=== PATIENT | female | born 1995 | race Caucasian/White ===

== ENCOUNTER 2017-11-27 14:41 | Emergency (ER) | payer SELFPAY ==
[2017-11-27 14:42] VITALS: BP 151/76; PULSE 77; RESP 16; TEMP 36.6; O2SAT 98; BMI 35.6
[2017-11-27] MEDS: Ketorolac 60 MG/2 ML Vial IM (15:36)
[2017-11-27] MEDS: Ondansetron ODT 4 MG Tablet 8 MG PO (15:37)
[2017-11-27 16:16] LABS: Bacteria 0 SEEN /hpf (None Seen); Mucous, Urine 0 SEEN /hpf (<or=2+)
[2017-11-27 16:23] LABS: Color, Urine Yellow (Yellow); Glucose, Dipstick Normal (Normal); Ketone-Dipstick Negative (Negative); Leukocyte Esterase-Dipstick 100 /ul (Negative); Nitrite-Dipstick Negative (Negative); Occult Blood-Urine 250 /ul (Negative); Protein-Dipstick 30 mg/dl (Negative); Urine Bilirubin Dipstick Negative (Negative); Urine Clarity Sl. Cloudy (Clear); Urine Urobilinogen Normal (Normal)
[2017-11-27 16:32] LABS: Red Blood Cells-Urine > 100 SEEN /hpf (0-5); Squamous Epithelial Cells - UA 0-5 SEEN /hpf (5-10); White Blood Cells 0-5 SEEN /hpf (0-5)
--- NOTE | 2017-11-27 16:39 | ED.DCSUM_ITS ---
- ER Visit Summary Date of Service: 11/27/17 Chief Complaint: [] Abdominal pain History of Present Illness: The patient is a 22 F complaining of low abdominal pain since today at 10 AM gradual onset continuous lower abdominal aching and stabbing. She is on her period. She does have a history of painful periods. Associated nausea. She took a negative test this morning. She took ibuprofen earlier today. She has had some mild dysuria. No other symptoms. She has had a ruptured ovarian cyst remotely Physical Examination: Vital signs reviewed General: Well-nourished well-developed Head: Normocephalic atraumatic Eyes: Pupils equal round and reactive to light extraocular movements intact ENT: TMs clear no hemotympanum no trauma Neck: Nontender full range of motion Cardiovascular: Regular rate rhythm no murmurs normal S1-S2 Respiratory: No distress clear to auscultation bilaterally chest nontender Abdomen: Soft very mild diffuse lower abdominal tenderness nondistended normal bowel sounds no masses Back: Nontender no CVA tenderness Extremities: Nontender active range of motion ?4 extremities no trauma Skin: Normal color no trauma Neuro alert oriented cranial nerves II through XII intact normal strength sensation reflexes Test Results: [] Emergency Department Course and Treatment: [] Urine analysis shows no evidence of infection. Patient given Toradol and Zofran. On reevaluation she feels much better. At this time I do not think she needs to be admitted. I think this is likely secondary to her periods. I do not think she needs further labs or imaging. Treatment Plan: [] Disposition: [] Impression: [], Abdominal pain This note was generated with [employer] dictation software. It may contain incorrect words, spelling, and punctuation that were not noted in review of the chart prior to signing ED Disposition - Plan for ED Patient: Chief Complaint: Abd Pain Referrals: Dacia Lambert MD [Primary Care Provider] -
--- NOTE | 2017-11-27 16:39 | ED.DEP ---
ED Disposition - Plan for ED Patient: Disposition: Home or Assisted Living Chief Complaint: Abd Pain Instructions: ED Abdominal Pain Unkn Cause Referrals: Daica Lambert MD [Primary Care Provider] -
[2017-11-27 17:01] VITALS: BP 142/87; PULSE 79; RESP 16; O2SAT 100
== END 2017-11-27 17:02 | disposition home or self-care (01) ==
PROVIDERS: Emergency Medicine; Emergency Provider Emergency Medicine; Family Provider Family Medicine; PCP Family Medicine
DX: R10.9 Unspecified abdominal pain (principal); R30.0 Dysuria; E66.9 Obesity, unspecified
CPT/HCPCS: 81001; 96372; 99282

== ENCOUNTER 2018-02-03 20:37 | Emergency (ER) | payer OTHER, SELFPAY ==
[2018-02-03 20:38] VITALS: BP 126/70; PULSE 88; RESP 16; TEMP 36.6; O2SAT 100; BMI 36.1
[2018-02-03] MEDS: Acetaminophen 500 MG Tablet 1000 MG PO (22:05)
[2018-02-03] MEDS: Tetracaine 0.5% Ophthalmic Bottle 1 DRP LEFT EYE (22:06)
[2018-02-03] MEDS: Fluorescein 1 MG STRIP 1 STRIP LEFT EYE (22:06)
--- NOTE | 2018-02-03 22:43 | ED.VISSUMM ---
- ER Visit Summary Date of Service: 02/03/18 Chief Complaint: Left eye red History of Present Illness: The patient is a [address] Lambert. She reports that her left eye became red yesterday. She has a foreign body sensation. She has photophobia. She reports that it itches. He has not been matted or crusted. She denies any change in her vision. She denies any trauma. She does not wear contacts. She has not been attending with. Physical Examination: Vitals: Stable. Afebrile. General: Well-nourished and well-developed. Left eye: Conjunctival injection. No exudate. Her eyelid was everted. There is no foreign material under this. There is no corneal abrasion. Extraocular motions are intact without pain. Head: Normocephalic atraumatic. Neck: Supple, no lymphadenopathy. No JVD. Nontender. Cardiovascular: Regular rate and rhythm. No murmurs. Respiratory: No respiratory distress. Clear to auscultation bilaterally. Abdominal: Soft, nontender, nondistended, normal bowel sounds. No guarding, rebound, or peritoneal signs. Back: Nontender. Extremities: Nontender, no edema. Skin: Normal color, no rash. Neurologic: Alert and oriented ?3. Cranial nerves II through XII are intact. Normal strength and sensation. Psych: Normal affect. Emergency Department Course and Treatment: Patient had erythromycin ointment placed. She was treated with Tylenol for pain. Treatment Plan: I discussed with the patient with this itching that it could be allergic in etiology. However, her right eye is not involved. She will be discharged 3 erythromycin drops and Naphcon-A. Instructed to follow-up Dr. Guallpa in 3-5 days if not improving. Return to the emergency department for any worsening symptoms. Disposition: To home in improved and stable condition. Impression: 1. Conjunctivitis on left. This note was generated with [employer] dictation software. It may contain incorrect words, spelling, and punctuation that were not noted in review of the chart prior to signing ED Disposition - Plan for ED Patient: Disposition: Home or Assisted Living Chief Complaint: Eye Problem Instructions: ED Conjunctivitis Nonspecific Prescriptions: Naphazoline HCl/Phenir Mal [Naphcon-A Eye Drops] 1 drop LEFT EYE 4X/DAY PRN #1 bottle PRN Reason: Itching Referrals: Josias Guallpa MD [STAFF PHYSICIAN] - 3-5 Days if not improving
[2018-02-03 22:58] VITALS: BP 124/70; PULSE 74; RESP 16; O2SAT 97
== END 2018-02-03 23:01 | disposition home or self-care (01) ==
PROVIDERS: Emergency Provider Emergency Medicine; Family Provider Family Medicine; PCP Family Medicine
DX: H10.9 Unspecified conjunctivitis (principal); Z72.0 Tobacco use
CPT/HCPCS: 99282

== ENCOUNTER 2018-07-23 12:29 | Emergency (ER) | payer SELFPAY ==
[2018-07-23 12:31] VITALS: BP 136/68; PULSE 67; RESP 16; TEMP 36.7; O2SAT 99; BMI 34.6
--- NOTE | 2018-07-23 13:23 | ED.VISSUMM ---
- ER Visit Summary Date of Service: 07/23/18 Chief Complaint: Rash History of Present Illness: The patient is a 22 F complains of rash to the bilateral axilla for the past 1 month. She had right axillary abscess drained at [facility] about the time the rash started. She does not use deodorant since that time. She had no further abscesses. Physical Examination: Vital signs unremarkable. Patient sitting upright in bed no acute distress. Heart is regular rate and rhythm. Lungs sounds clear. Skin examination reveals flat erythematous areas to the bilateral axilla with some satellite lesions consistent with a fungal skin infection. Test Results: [] Emergency Department Course and Treatment: Patient is given a prescription for ketoconazole cream. She was advised visiting a few weeks to get cleared up. Treatment Plan: [] Disposition: Discharge Impression: Fungal skin infection bilateral axilla This note was generated with [employer] dictation software. It may contain incorrect words, spelling, and punctuation that were not noted in review of the chart prior to signing ED Disposition - Plan for ED Patient: Disposition: Home or Assisted Living Instructions: ED Ringworm Infec Fungal Prescriptions: Ketoconazole [Nizoral Cream] 1 applic TOPICAL BID #1 tube Referrals: Dcaia Lambert MD [STAFF PHYSICIAN] - 1-2 Weeks
== END 2018-07-23 14:02 | disposition home or self-care (01) ==
LOC: ED 13:42
PROVIDERS: Emergency Provider Emergency Medicine
DX: B36.8 Other specified superficial mycoses (principal); Z72.0 Tobacco use
CPT/HCPCS: 99282

== ENCOUNTER 2018-10-07 06:45 | Emergency (ER) | payer SELFPAY ==
[2018-10-07 06:46] VITALS: BP 126/72; PULSE 66; RESP 14; TEMP 36.5; O2SAT 98; BMI 33.1
--- NOTE | 2018-10-07 07:04 | RAD_ITS ---
STUDY: X-RAY - PELVIS REASON FOR EXAM: Female, 22 years old. Follow-up after IUD placement. Patient now has pelvic pain. TECHNIQUE: One view of the pelvis was obtained. COMPARISON: Prior comparable comparison studies are not available for review at this time. FINDINGS: There is a non-specific bowel gas pattern. Normal visualized soft tissue structures. IUD is visible. Sacrum and iliac wings are obscured by bowel gas and stool. Normal visualized bilateral superior and inferior pubic rami. Normal pubic symphysis. Normal ischial tuberosities. Normal visualized right femoral head. Normal right acetabulum. Normal right hip joint. Normal visualized left femoral head. Normal left acetabulum. Normal left hip joint. RAD/Pelvis 1 or 2 Views IMPRESSION: IUD is visible. Electronically Signed: Ángela Meléndez MD at 7:46 EDT , Service support ,
--- NOTE | 2018-10-07 07:06 | ED.DCSUM_ITS ---
- ER Visit Summary Date of Service: 10/07/18 Chief Complaint: Pelvic pain History of Present Illness: The patient is a 22 F who had an IUD placed on September 15 at [facility]. Patient states since that time she has had continued cramping and spotting. Pain today is worse in the right lower quadrant. She has noted some vaginal discharge as well. She has noted some mild dysuria and states that she has chronic UTIs. Physical Examination: Vital signs unremarkable. Head neck examination unremarkable. Heart is regular rate and rhythm. Lung sounds are clear. Abdomen is soft with minimal suprapubic tenderness. No guarding or rebound. No back or CVA tenderness. Pelvic examination reveals mild vaginal bleeding. Cervix is normal. String from IUD is noted. Test Results: Urine test is negative. Urinalysis shows 0-5 white cells with 0 bacteria. Pelvis x-ray reveals IUD to be visible in good position. Emergency Department Course and Treatment: Test results are discussed with the patient. I did discuss appropriate dosing of ibuprofen as she has recently been taking 1200 mg at a time. We will write her for naproxen which she can take twice a day. She was decided not to take ibuprofen with this. She will call [facility] on Tuesday for follow-up. Treatment Plan: [] Disposition: Discharge Impression: Pelvic cramping This note was generated with [employer] dictation software. It may contain incorrect words, spelling, and punctuation that were not noted in review of the chart prior to signing ED Disposition - Plan for ED Patient: Disposition: Home or Assisted Living Instructions: ED Pelvic Pain [facility] Prescriptions: Naproxen [Naprosyn] 500 mg PO BID PRN PRN #20 tablet PRN Reason: Pain Additional Instructions: Follow-up with [facility] on Tuesday.
[2018-10-07 07:30] LABS: Bacteria 0 SEEN /hpf (None Seen); Mucous, Urine 0 SEEN /hpf (<or=2+); Red Blood Cells-Urine 0 SEEN /hpf (0-5)
[2018-10-07 07:36] LABS: Color, Urine Yellow (Yellow); Glucose, Dipstick Normal (Normal); Ketone-Dipstick Negative (Negative); Leukocyte Esterase-Dipstick 25 /ul (Negative); Nitrite-Dipstick Negative (Negative); Occult Blood-Urine 250 /ul (Negative); Protein-Dipstick Negative (Negative); Urine Bilirubin Dipstick Negative (Negative); Urine Clarity Clear (Clear); Urine Urobilinogen Normal (Normal); Urine pH 6.5 (5.0 - 8.0)
[2018-10-07 07:38] LABS: Internal QC Validated? YES +Cl - CLEAR BKGD; Pregnancy, Urine Negative Negative
[2018-10-07 07:43] LABS: Amorphous Sediment 1+; Squamous Epithelial Cells - UA 0-5 SEEN /hpf (5-10); White Blood Cells 0-5 SEEN /hpf (0-5)
[2018-10-07 08:20] VITALS: BP 130/70; PULSE 64; RESP 16; O2SAT 100
== END 2018-10-07 08:21 | disposition home or self-care (01) ==
PROVIDERS: Emergency Provider Emergency Medicine
DX: R25.2 Cramp and spasm (principal); N89.8 Other specified noninflammatory disorders of vagina; N93.9 Abnormal uterine and vaginal bleeding, unspecified; N39.0 Urinary tract infection, site not specified; Z97.5 Presence of (intrauterine) contraceptive device; Z72.0 Tobacco use
CPT/HCPCS: 72170; 81001; 81025; 99282

== ENCOUNTER 2019-11-15 06:38 | Emergency (ER) | payer OTHER, SELFPAY ==
[2019-11-15 06:41] VITALS: BP 115/67; PULSE 65; RESP 16; TEMP 36.5; O2SAT 97; BMI 29.9
--- NOTE | 2019-11-15 07:15 | ED.DCSUM_ITS ---
History of Present Illness Chief Complaint: Female C/O Informant: Patient Pain: Pelvic Pain Onset: Yesterday Context: Gradual Onset Timing: Intermittent Quality: Cramping, Sharp Location: Suprapubic Current Severity: Mild Maximum Severity: Severe Relieved by: NSAIDS Issue: Vaginal bleeding - spotting. Negative for: Passing clots, Passing tissue Onset: Yesterday Associated Symptoms: Negative for: Dysuria, Frequency, Urgency, Hematuria Sexually: Active, Single Partner Control: IUD Narrative: Patient is a 24-year-old female with no significant past medical history presenting with pelvic cramping. Patient states she has a history of painful menstrual cycles with heavy bleeding but currently has an IUD, Heide. She notes last month she had some significant pelvic cramping and that she had pelvic cramping that was severe starting yesterday. States is intermittent. She currently does not have any cramping. She did take 3 Naprosyn yesterday but did not take anything today. States had hard time sleeping last night because of the pain. She is also had some mild spotting. Patient currently does not have an NUISANCE WILDLIFE CONTROL OPERATOR. Her IUD was placed by [facility], per chart review. Patient denies any urinary symptoms. She denies any abnormal vaginal discharge. She states she had 1 sexual partner and is not concerned for sexually transmitted infections. She denies any fever, chills, vomiting or change in bowel habits. She denies any rash. She denies any myalgias or arthralgias. She has any other complaints at this time. Not known her last menstrual period was because she does not normally get menstrual cycles with her IUD. Past Medical History - Allergies and Home Meds Allergies/Adverse Reactions: Allergies nickel Allergy (Verified 11/15/19 06:44) Itching PEPPERMINT OIL Allergy (Uncoded 11/15/19 06:44) Rash Primary Care Physician: Talya Kevin MD [STAFF PHYSICIAN] - Past Medical History: None Surgical History: noncontributory Smoking Status: Current every day smoker Review of Systems General: Denies: Chills, Fever, Sweats Eyes: Denies: Visual changes - bilaterally, Diplopia ENT: Denies: Rhinorrhea, Sore throat Cardiovascular: Denies: Chest pain, Palpitations Respiratory: Denies: Dyspnea, Cough, Dyspnea on exertion Gastrointestinal: Reports: Abdominal pain - Pelvic cramping, Nausea - With pain. Denies: Vomiting, Diarrhea, Melena, Hematochezia Genitourinary: Reports: - - Vaginal spotting. Denies: Dysuria, Hematuria, Frequency Musculoskeletal: Denies: Back pain, Extremity Pain Skin: Denies: Rash, Wounds Neurological: Denies: Headache, Weakness, Numbness Physical Exam Vital Signs/Narrative: Vital Signs Temp Pulse Resp BP Pulse Ox 11/15/19 06:41 97.7 F L 65 16 115/67 97 Inital Vital Signs reviewed: Yes General: Well nourished, Well developed Head: Normocephalic, Atraumatic Eyes: Perrl, EOMI ENT: Moist mucous membranes, No rhinorrhea Neck: Supple, Nontender Cardiovascular: Regular rate, Regular rhythm, No murmurs Respiratory: No distress, CTA bilaterally, Chest nontender Abdomen: Soft, Nontender, Nondistended, Normal bowel sounds : Speculum exam: Normal external genitalia, No vaginal lesions, No vaginal discharge, No blood in vault, No active bleeding, - - Very mildly blood-tinged vaginal discharge but no active bleeding noted. IUD strings are visualized. No cervical motion tenderness. Mild discomfort diffusely with pelvic exam but no significant adnexal tenderness. Negative chandelier sign.. Negative for: Cervicitis, Foul smelling vaginal discharge Bimanual exam: No cervical motion tenderness, Os closed, Normal size uterus, No mass to adnexa, bilat, Tender Uterus - Mildly Back: Nontender, Normal Inspection Extremities: Nontender, No edema Skin: Normal color, No rash Neurological: Alert, Oriented x3, Cranial nerves II-XII grossly intact, Normal Strength, Normal Sensation Psychological: Normal affect Diagnostic/Tx/Re-eval Laboratory Data 11/15/19 11/15/19 06:45 06:45 Urine Color Yellow Urine Clarity Sl. Cloudy Urine pH 6.0 Ur Specific [place] 1.025 Urine Protein 30 H Urine Glucose (UA) Normal Urine Ketones 5 H Urine Occult Blood 50 H Urine Nitrite Negative Urine Bilirubin Negative Urine Urobilinogen Normal Ur Leukocyte Esterase 25 H Urine RBC 0-5 SEEN Urine WBC 0-5 SEEN Ur Squamous Epith Cells 0-5 SEEN Urine Bacteria 1+ Urine Mucus 1+ Urine Test Negative - Medical Decision/Diagnostic Studies She is evaluated for pelvic cramping. This is reminiscent of her menstrual cramps but patient has not had this since she has had her IUD placed. IUD rings are visualized. No signs of UTI however patient does have mild leuk esterase. Urine culture sent. Wet prep does not show trichomonas but does show clue cells concerning for BV. I suspect her pelvic cramping is likely breakthrough menstrual cycle. Patient be treated with NSAID therapy and Flagyl. She is given NUISANCE WILDLIFE CONTROL OPERATOR for follow-up as she does not have one. She is given a work note for today and tomorrow as requested. Her abdomen is soft and nontender. I do not suspect an acute perforation or other acute surgical abnormalities. Her symptoms are not consistent with ovarian torsion I do not think an emergent ultrasound is indicated at this time. She is hemodynamically stable in the emergency room. Patient is counseled on signs and symptoms requiring return to the emergency room. Patient verbalizes agreement and understand this plan. Patient discharged home in stable and improved condition. ED Disposition - Plan for ED Patient: Disposition: Home or Assisted Living Diagnosis: Pelvic cramping, Bacterial vaginosis Instructions: Vaginal Infection: Bacterial Vaginosis, ED Pelvic Pain [facility] Prescriptions: metroNIDAZOLE [Flagyl] 500 mg PO BID #14 tab Transmission Status: Received by [facility] [id number] Ibuprofen [Motrin] 800 mg PO TID PRN PRN #20 tab PRN Reason: Pain/Inflammation Transmission Status: Received by [facility] [id number] Referrals: Talya Kevin MD [STAFF PHYSICIAN] -
[2019-11-15] MEDS: Ibuprofen 600 MG Tablet PO (07:20)
[2019-11-15 07:37] LABS: Color, Urine Yellow (Yellow); Glucose, Dipstick Normal (Normal); Ketone-Dipstick 5 mg/dl (Negative); Leukocyte Esterase-Dipstick 25 /ul (Negative); Nitrite-Dipstick Negative (Negative); Occult Blood-Urine 50 /ul (Negative); Protein-Dipstick 30 mg/dl (Negative); Specific Gravity, Urine 1.025 (1.002-1.030); Urine Bilirubin Dipstick Negative (Negative); Urine Clarity Sl. Cloudy (Clear); Urine Urobilinogen Normal (Normal)
[2019-11-15 07:40] LABS: Internal QC Validated? YES +Cl - CLEAR BKGD; Pregnancy, Urine Negative Negative
[2019-11-15 07:45] LABS: Bacteria 1+ /hpf (None Seen); Mucous, Urine 1+ /hpf (<or=2+); Red Blood Cells-Urine 0-5 SEEN /hpf (0-5); Squamous Epithelial Cells - UA 0-5 SEEN /hpf (5-10); White Blood Cells 0-5 SEEN /hpf (0-5)
[2019-11-15 08:15] VITALS: BP 124/79; PULSE 81; RESP 22; O2SAT 98
--- NOTE | 2019-11-15 08:15 | ED.RN ---
THIS NURSE REVIEWED D/C INSTRUCTIONS WITH PT. PT VERBALIZED UNDERSTANDING OF INSTRUCTIONS. PT DENIES FURTHER NEEDS OR QUESTIONS AT THIS TIME. PT AMBULATES FROM ROOM ON OWN WITHOUT ASSISTANCE FROM STAFF
[2019-11-15 10:54] LABS: Chlamydia Trachomatis by PCR Negative (Negative); Neisserai gonorrhoeae by PCR Negative (Negative); Probe Check PASS; Sample Adequacy Control PASS; Specimen Processing Control PASS
== END 2019-11-15 08:16 | disposition home or self-care (01) ==
PROVIDERS: Emergency Provider Emergency Medicine
DX: N76.0 Acute vaginitis (principal); B96.89 Other specified bacterial agents as the cause of diseases classified elsewhere; R10.2 Pelvic and perineal pain; F17.200 Nicotine dependence, unspecified, uncomplicated; Z97.5 Presence of (intrauterine) contraceptive device
CPT/HCPCS: 81001; 81025; 87086; 87088; 87210; 87491; 87591; 99283

== ENCOUNTER 2019-11-19 07:48 | Emergency (ER) | payer OTHER, SELFPAY ==
[2019-11-19 07:49] VITALS: BP 117/72; PULSE 70; RESP 18; TEMP 36.6; O2SAT 98; BMI 30.9
--- NOTE | 2019-11-19 08:00 | US_ITS ---
STUDY: ULTRASOUND OF THE FEMALE PELVIS - COMPLETE REASON FOR EXAM: Female, 24 years old. RLQ PAIN LMP: Unknown TECHNIQUE: Transvaginal TECHNICAL QUALITY: Adequate. COMPARISON: None. FINDINGS: The uterus is anteverted and is in a midline position. The uterus measures 7 cm x 4 cm x 3.4 cm. Normal uterine cervix. The endometrium measures 6 mm in thickness, and is hyperechoic. There is no demonstrated endometrial mass. There is no demonstrated myometrial mass. I.U.D. - The patient does have an I.U.D. the IUD is fundal. The right ovary is visualized. The right ovary measures 2.8 cm x 2.1 cm x 1.6 cm. There is no right ovarian cyst or ovarian mass. There is no visualized right adnexal mass or complex lesion. There is normal arterial and normal venous vascularity. The left ovary is visualized. The left ovary measures 2.5 cm x 1.9 cm x 1.5 cm. There is no left ovarian cyst or ovarian mass. There is no visualized left adnexal mass or complex lesion. There is normal arterial and normal venous vascularity. There is no fluid in the cul-de-sac. Polycystic ovary disease: No. US/Transvaginal Non- IMPRESSION: Normal female pelvis. IUD is seen within the fundal portion of the uterus. Electronically Signed: Jl Lau, at 9:30 EDT , Service support ,
--- NOTE | 2019-11-19 08:02 | ED.DCSUM_ITS ---
History of Present Illness Chief Complaint: Abd Pain Narrative: Patient presents with pelvic pain she was seen 4 days ago for similar symptoms she tells me that she had intercourse over the weekend and had dyspareunia and had some slight bleeding afterwards she is denying any discharge. She has no fever or chills. She has no dysuria. She has no flank pain. Past Medical History - Allergies and Home Meds Allergies/Adverse Reactions: Allergies nickel Allergy (Verified 11/19/19 07:51) Itching PEPPERMINT OIL Allergy (Uncoded 11/19/19 07:51) Rash Primary Care Physician: Care Physician,No Primary [Primary Care Provider] - Past Medical History: None Surgical History: noncontributory Smoking Status: Current every day smoker Review of Systems All systems negative except as indicated General: Denies: Fever Cardiovascular: Denies: Chest pain Respiratory: Denies: Dyspnea, Cough Gastrointestinal: Reports: Abdominal pain, Nausea. Denies: Vomiting, Diarrhea, Constipation Genitourinary: Denies: Dysuria, Hematuria, Frequency Musculoskeletal: Denies: Myalgias, Back pain Skin: Denies: Rash, Abscess Neurological: Denies: Headache, Weakness Endocrine: Denies: Polyuria Hematologic: Denies: Easy bleeding Physical Exam Vital Signs/Narrative: Vital Signs Temp Pulse Resp BP Pulse Ox 11/19/19 07:49 97.8 F 70 18 117/72 98 General: Well nourished, Well developed, No Acute Distress Cardiovascular: Regular rate Respiratory: No distress, CTA bilaterally Abdomen: Soft, - - There is suprapubic tenderness without any guarding or rebound no tenderness at McBurney's. : - - Normal external genitalia, she has a normal cervix it is not friable, the IUD rings are intact. Back: Nontender, Normal Inspection. Negative for: CVA tenderness Extremities: Nontender Skin: Normal color Psychological: Normal affect Diagnostic/Tx/Re-eval - Medical Decision Making An unremarkable work-up, she is encouraged to follow-up with her [employer] doctor, GC and Chlamydia tests are pending at this time, however her pelvic exam did not show any obvious discharge or a friable cervix. The IUD strings were intact. ED Disposition - Plan for ED Patient: Disposition: Home or Assisted Living Diagnosis: Pelvic pain Instructions: ED Pelvic Pain [facility] Referrals: Talya Kevin MD [STAFF PHYSICIAN] - 3-5 Days
[2019-11-19 08:12] LABS: Mucous, Urine 0 SEEN /hpf (<or=2+)
[2019-11-19] MEDS: Ketorolac 15 MG/ML Vial IV (08:16)
[2019-11-19] MEDS: Ondansetron 4 MG/2 ML Vial IV (08:17)
[2019-11-19 08:19] LABS: Absolute Lymphocyte Count 1.98 X10^3/uL (0.83-4.51); Absolute Neutrophil Count 5.6 X10^3/uL (2.0-7.7); Basophil# 0.09 X10^3/uL; Eosinophil# 0.27 X10^3/uL; Eosinophils% 3.1 % (0-5); Hematocrit 44.5 % (37-47); Hemoglobin 14.2 g/dL (12.0-15.0); Lymphocyte # 1.98 X10^3/ul (4.0); Lymphocyte % 22.8 % (19-41); Mean Corp Hgb Conc 31.9 g/dL (32-36); Mean Corpuscular Hgb 28.7 pg (27.0-32.0); Mean Corpuscular Volume 90.1 fL (81-99); Mean Platelet Vol. 9.7 fl (6.2-12.0); NRBC Flagged by Analyzer 0 % (0-5); Neutrophil # 5.63 X10^3/uL (2.7-7.7); Neutrophil % 64.8 % (47-70); Platelet Count 341 K/mm3 (150-450); RBC Distribution Width CV 13.5 % (11.6-14.6); RBC Distribution Width SD 44.4 fl (35.1-43.9); Red Blood Count 4.94 M/mm3 (4.2-5.4); White Blood Count 8.7 K/mm3 (4.4-11.0)
[2019-11-19 08:24] LABS: Color, Urine Yellow (Yellow); Glucose, Dipstick Normal (Normal); Ketone-Dipstick Negative (Negative); Leukocyte Esterase-Dipstick 25 /ul (Negative); Nitrite-Dipstick Negative (Negative); Occult Blood-Urine 25 /ul (Negative); Protein-Dipstick Negative (Negative); Specific Gravity, Urine 1.015 (1.002-1.030); Urine Bilirubin Dipstick Negative (Negative); Urine Clarity Sl. Cloudy (Clear); Urine Urobilinogen Normal (Normal)
[2019-11-19 08:30] LABS: Bacteria 1+ /hpf (None Seen); Red Blood Cells-Urine 0-5 SEEN /hpf (0-5); Squamous Epithelial Cells - UA 0-5 SEEN /hpf (5-10); White Blood Cells 0-5 SEEN /hpf (0-5)
[2019-11-19 10:06] VITALS: BP 111/66; PULSE 56; RESP 18
[2019-11-19 13:00] LABS: Chlamydia Trachomatis by PCR Negative (Negative); Neisserai gonorrhoeae by PCR Negative (Negative); Probe Check PASS; Sample Adequacy Control PASS; Specimen Processing Control PASS
== END 2019-11-19 10:07 | disposition home or self-care (01) ==
PROVIDERS: Emergency Provider Emergency Medicine
DX: R10.2 Pelvic and perineal pain (principal); R11.0 Nausea; F17.200 Nicotine dependence, unspecified, uncomplicated
CPT/HCPCS: 76830; 81001; 85025; 87210; 87491; 87591; 93976; 96374; 96375; 99283; A4216; J2405

== ENCOUNTER 2020-02-11 08:04 | Emergency (ER) | payer OTHER, SELFPAY ==
[2020-02-11 08:05] VITALS: BP 133/63; PULSE 66; RESP 16; TEMP 36.3; O2SAT 98; BMI 28.2
[2020-02-11 08:07] VITALS: BP 133/63; PULSE 66; RESP 16; TEMP 36.3; O2SAT 98
--- NOTE | 2020-02-11 08:16 | DCINST.ED_ITS ---
ED Disposition - Plan for ED Patient: Instructions: ED Cellulitis Prescriptions: Smz/Tmp Ds [Bactrim Ds] 1 tab PO BID #14 tab Prescription Printed Cephalexin [Keflex] 500 mg PO Q6 #40 cap Prescription Printed Referrals: Tresa Valentine, MANUFACTURING PROJECT ENGINEER-C [Primary Care Provider] -
--- NOTE | 2020-02-11 08:20 | ED.VISSUMM ---
- ER Visit Summary Date of Service: 02/11/20 Chief Complaint: Sore on right breast History of Present Illness: The patient is a 24 F presenting with sore on right breast. Patient states she noticed this yesterday. She denies pain or injury. Denies fever. She noticed a scab to the inferior aspect of her right breast yesterday. This morning she noted that the scab had fallen off. She denies drainage. She is not breast-feeding. Denies other complaints. Physical Examination: Vitals are stable. Patient is afebrile. Alert no acute distress. HEENT exam is unremarkable. Neck is supple. Lungs are clear and equal bilaterally. Right breast 2cm area of circular erythema, no fluctuance or induration Heart is regular rate and rhythm. Extremities are unremarkable. Skin is warm and dry. Remainder of exam is unremarkable. Emergency Department Course and Treatment: She was given Bactrim and Keflex. There is no area amenable to drainage at this time. She was advised to watch this closely and follow-up with her primary care physician. Advised to return to ED for worsening complaints. Disposition: Discharge home Impression: Right breast cellulitis This note was generated with [employer] dictation software. It may contain incorrect words, spelling, and punctuation that were not noted in review of the chart prior to signing ED Disposition - Plan for ED Patient: Instructions: ED Cellulitis Prescriptions: Smz/Tmp Ds [Bactrim Ds] 1 tab PO BID #14 tab Prescription Printed Cephalexin [Keflex] 500 mg PO Q6 #40 cap Prescription Printed Referrals: Tresa Valentine NP-C [Primary Care Provider] -
[2020-02-11] MEDS: Smz/Tmp Ds Tablet 1 TABLET PO (08:25)
[2020-02-11] MEDS: Cephalexin 250 MG Capsule 500 MG PO (08:25)
== END 2020-02-11 08:29 | disposition home or self-care (01) ==
LOC: ED 08:26
PROVIDERS: Emergency Provider Emergency Medicine; PCP Nurse Practitioner Family
DX: N61.0 Mastitis without abscess (principal)
CPT/HCPCS: 99283

== ENCOUNTER → 2022-06-21 | Outpatient (CLI) | payer MEDICAID, SELFPAY ==
[2022-06-21 13:27] LABS: Absolute Lymphocyte Count 1.53 X10^3/uL (0.83-4.51); Absolute Neutrophil Count 7.5 X10^3/uL (2.0-7.7); Basophil# 0.05 X10^3/uL; Basophil% 0.5 % (0-1); Eosinophil# 0.12 X10^3/uL; Eosinophils% 1.2 % (0-5); Hematocrit 37.4 % (37-47); Hemoglobin 12.4 g/dL (12.0-15.0); Lymphocyte # 1.53 X10^3/ul (0.83-4.51); Lymphocyte % 15.4 % (19-41); Mean Corp Hgb Conc 33.2 g/dL (32-36); Mean Corpuscular Volume 84.4 fL (81-99); Mean Platelet Vol. 9.7 fl (6.2-12.0); Monocyte# 0.64 X10^3/uL; Monocyte% 6.5 % (0-10); NRBC Flagged by Analyzer 0 % (0-5); Neutrophil % 75.6 % (47-70); Platelet Count 347 K/mm3 (150-450); RBC Distribution Width CV 13.2 % (11.6-14.6); RBC Distribution Width SD 41.2 fl (35.1-43.9); Red Blood Count 4.43 M/mm3 (4.2-5.4); White Blood Count 9.9 K/mm3 (4.4-11.0)
[2022-06-21 15:53] LABS: HIV - WCH Non-Reactive (Nonreactive); Hepatitis B Surface Antigen Non-Reactive (Nonreactive); Hepatitis C Antibody Non-Reactive (Nonreactive); Rubella IgG Reactive (Nonreactive); Syphilis Antibodies Non-reactive
[2022-06-24 21:46] LABS: V-Zoster IgG (Immunity) 384 index (Immune >165)
[2022-06-24 22:48] LABS: HPV Reflexed? NOT INDICATED
== END | disposition home or self-care (01) ==
LOC: WOBLAB 11:55
PROVIDERS: PCP Nurse Practitioner Family; Visit Provider Student in an Organized Health Care Education/Training Program
DX: Z34.81 Encounter for supervision of other normal pregnancy, first trimester (principal)
CPT/HCPCS: 36415; 85025; 86703; 86762; 86780; 86787; 86803; 87086; 87088; 87340; 88175; G0145

== ENCOUNTER → 2022-09-10 | Outpatient (CLI) | payer MEDICAID, SELFPAY ==
[2022-09-10 10:33] LABS: Absolute Lymphocyte Count 1.98 X10^3/uL (0.83-4.51); Absolute Neutrophil Count 6.9 X10^3/uL (2.0-7.7); Basophil# 0.05 X10^3/uL; Basophil% 0.5 % (0-1); Eosinophil# 0.09 X10^3/uL; Eosinophils% 0.9 % (0-5); Hematocrit 33.4 % (37-47); Hemoglobin 11.2 g/dL (12.0-15.0); Lymphocyte # 1.98 X10^3/ul (0.83-4.51); Lymphocyte % 20.3 % (19-41); Mean Corp Hgb Conc 33.5 g/dL (32-36); Mean Corpuscular Hgb 28.9 pg (27.0-32.0); Mean Corpuscular Volume 86.3 fL (81-99); Mean Platelet Vol. 9.1 fl (6.2-12.0); Monocyte# 0.66 X10^3/uL; Monocyte% 6.8 % (0-10); NRBC Flagged by Analyzer 0 % (0-5); Neutrophil % 70.8 % (47-70); Platelet Count 363 K/mm3 (150-450); RBC Distribution Width CV 13.2 % (11.6-14.6); Red Blood Count 3.87 M/mm3 (4.2-5.4); White Blood Count 9.8 K/mm3 (4.4-11.0)
[2022-09-10 11:09] LABS: Glucose Challenge Gest 1H 50g 84 mg/dL (70-140)
[2022-09-10 11:32] LABS: Syphilis Antibodies Non-reactive
== END | disposition home or self-care (01) ==
LOC: WOBLAB 10:14
PROVIDERS: PCP Nurse Practitioner Family; Visit Provider Student in an Organized Health Care Education/Training Program
DX: Z34.82 Encounter for supervision of other normal pregnancy, second trimester (principal)
CPT/HCPCS: 36415; 82950; 85025; 86780

== ENCOUNTER 2022-09-15 15:15 | Outpatient (CLI) | payer MEDICAID, SELFPAY ==
[2022-09-15 15:28] VITALS: BMI 34.4
[2022-09-15 15:30] VITALS: TEMP 36.8; O2SAT 100
[2022-09-15 16:04] LABS: Color, Urine Yellow (Yellow); Glucose, Dipstick Normal (Normal); Ketone-Dipstick Negative (Negative); Leukocyte Esterase-Dipstick 25 /ul (Negative); Nitrite-Dipstick Negative (Negative); Occult Blood-Urine 250 /ul (Negative); Protein-Dipstick 15 mg/dl (Negative); Specific Gravity, Urine 1.015 (1.002-1.030); Urine Bilirubin Dipstick Negative (Negative); Urine Clarity Sl. Cloudy (Clear); Urine Urobilinogen Normal (Normal)
--- NOTE | 2022-09-15 18:14 | OB.TRI.NOTE ---
HPI - General General Date of Service: 09/15/22 HPI Narrative REGAN PFEIFFER, is a 26 F who presents with vaginal cramping and back pain PFSH PFSH Home Medications cephalexin 500 mg capsule 500 mg PO Q6 #40 caps 02/11/20 [Rx Last Taken Unknown] sulfamethoxazole 800 mg-trimethoprim 160 mg tablet 1 tab PO BID #14 tabs 02/11/20 [Rx Last Taken Unknown] 09/15/22 [History Last Taken Unknown] acetaminophen 325 mg tablet (Tylenol) 650 mg PO Q6H PRN Pain 09/15/22 [History Last Taken Unknown] ondansetron HCl 4 mg tablet 4 mg PO Q8H PRN Nausea 09/15/22 [History Last Taken Unknown] Allergy/AdvReac Type Severity Reaction Status Date / Time nickel Allergy Itching Verified 02/11/20 08:05 peppermint Allergy Rash Verified 05/14/22 16:17 Social History Smoking Status: Current every day smoker NST FHR Rate Baby A Baseline: 140 Variability:: Moderate Accelerations:: 10 x 10 Decelerations:: None NST Reactive:: Yes Uterine Activity:: quiet Assessment & Plan (1) : PLAN: Patient arrived with cramping. Called by nursing with cramping back pain. Overall reassuring heart tones. Afebrile vital signs stable. Vaginal bleeding, cervical exam closed thick and high per nursing. Reassuring heart tones. Urine overall negative, blood likely from vaginal bleeding. Okay to discharge home and continue to monitor, follow-up at scheduled appointments
--- NOTE | 2022-09-16 05:20 | CT_ITS ---
EXAM: CT ABDOMEN AND PELVIS WITH INTRAVENOUS CONTRAST CLINICAL INDICATION: Acute right flank pain, 26 weeks Acute right flank pain, 26 weeks TECHNIQUE: Helically acquired images were obtained of the abdomen and pelvis with intravenous contrast. This CT exam was performed using one or more of the following dose reduction techniques: automated exposure control, adjustment of the mA and/or kV according to patient size, and/or use of iterative reconstruction technique. This report was created using [employer] report generation technology. CONTRAST: IV 100mL [id number]-370 RADIATION DOSE: CTDIvol = 15.31 mGy, DLP = 1338.07 mGy-cm COMPARISON: None. FINDINGS: LOWER THORAX: Unremarkable. Lung bases are clear. No cardiomegaly. No significant pericardial effusion. ABDOMEN: LIVER: Unremarkable. Homogeneous. No focal mass. GALLBLADDER AND BILE DUCTS: The gallbladder surgically absent. No intra- or extrahepatic biliary ductal dilation. PANCREAS: Unremarkable. No focal cystic or solid mass. SPLEEN: Unremarkable. Normal size without focal cystic or solid mass. ADRENALS: Unremarkable. No nodules. KIDNEYS AND URETERS: As seen on axial images 111-113, there is a 1.5 cm long, 4 mm wide distal right ureteral calculus versuscollection of distal right ureteral calculi at the ureterovesical junction. There is right hydroureter and moderate hydronephrosis of the right kidney. Normal renal size and position. STOMACH AND BOWEL: Unremarkable. No stomach or bowel distention. No focal inflammatory change. PELVIS: APPENDIX: The appendix is seen on axial images 58-71. There is no evidence for acute appendicitis. BLADDER: Unremarkable. REPRODUCTIVE: There is a single intrauterine gestation in breech presentation. ABDOMEN and PELVIS: INTRAPERITONEAL SPACE: Unremarkable. No ascites or other fluid collection. No free air. BONES/JOINTS: There are multilevel degenerative changes in the visualized spine. No suspicious lytic or blastic abnormality. SOFT TISSUES: Unremarkable. No discrete abdominal or pelvic wall hernia. VASCULATURE: Unremarkable. Abdominal aorta is non-dilated. LYMPH NODES: Unremarkable. No enlarged lymph nodes. CT/Abdomen/Pelvis W IV Cont ONLY IMPRESSION: 1. 4 mm wide, 1.5 cm long calcific density in the distal right ureter at the UVJ. This may represent a single elongated calculus or a dense collection of smaller calculi. There is associated moderate right hydronephrosis. 2. Previous cholecystectomy. 3. Single intrauterine gestation. Electronically Signed: Daryl Castelan MD at 5:54 EDT ,
[2022-09-16 05:50] VITALS: BP 130/72; PULSE 88; TEMP 36.3
[2022-09-16 05:51] VITALS: PULSE 91; O2SAT 97
== END 2022-09-15 17:04 | disposition home or self-care (01) ==
LOC: WPOUT 15:27 → WP 15:28
PROVIDERS: PCP Nurse Practitioner Family; Referring Provider Obstetrics & Gynecology; Visit Provider Obstetrics & Gynecology
DX: O99.891 Other specified diseases and conditions complicating pregnancy (principal); M54.9 Dorsalgia, unspecified; O99.330 Smoking (tobacco) complicating pregnancy, unspecified trimester; F17.200 Nicotine dependence, unspecified, uncomplicated; Z3A.00 Weeks of gestation of pregnancy not specified
CPT/HCPCS: 59050; 81002; 99221; G0378

== ENCOUNTER 2022-09-16 02:30 | Outpatient (CLI) | payer MEDICAID, SELFPAY ==
[2022-09-16] MEDS: 0.9% Normal Saline 1,000 ML 999 ML IV ×2 (03:40→06:17)
[2022-09-16] MEDS: Ceftriaxone 1 GM/50 ML BAG IV (04:42)
[2022-09-16 06:00] VITALS: BMI 35.3
[2022-09-16] MEDS: Acetaminophen 500 MG Tablet 1000 MG PO ×2 (06:10→12:03)
[2022-09-16] MEDS: Ondansetron 4 MG/2 ML Vial IV (06:13)
--- NOTE | 2022-09-16 06:24 | HP.PCM.OB_ITS ---
History and Physical Date of Admission: 09/16/22 Chief complaint: Right lower quadrant pain History present illness: 26-year-old G1, P0 at 26 weeks and 3 days with INGRID 12/19/2022 arrives with right lower quadrant pain. Pain was generalized yesterday morning and became worsened and more right-sided. Patient recently with nausea. Denies headache, vision change, chest pain, shortness of breath, right upper quadrant pain, fevers, chills. Patient states good movement is complicated by medical marijuana use for nausea, BMI 35 Obstetric history: G1: Current Past medical history: None Medications: vitamin, medical marijuana Past surgical history: Cholecystectomy Family history: Denies history DVT or PE Social history: Current medical marijuana user. Former cigarette smoker. Denies alcohol use Review of systems: Besides above pertinent positives a full review of systems was performed and found to be negative Physical exam: Vitals: Pending General: Discomfort HEENT: Normocephalic/atraumatic no cervical lymphadenopathy Cardiac/respiratory: No use of accessory muscles, nonlabored breathing Abdomen: Soft, tender to deep palpation of right lower quadrant, negative rebound tenderness or guarding, gravid Back: Negative CVA tenderness bilaterally Extremities: No peripheral edema normal peripheral pulses Psych: Normal affect and remainder nonpressured speech Labs: Pending Bedside ultrasound: Cephalic, TEJAL subjectively within normal limits. Placenta appears normal no signs of abruption CT abdomen and pelvis: Reviewed images revealing right nephrolithiasis Assessment and plan: 26-year-old G1, P0 at 26 weeks and 3 days arrived yesterday to triage with cramping found to have cervix closed. For clarification after further discussion with patient, patient never had vaginal bleeding at triage visit or at this visit which was documented and reported to me by nursing but after discussion with patient patient denies vaginal bleeding. After being discharged home from triage patient with more than just cramping and noted to have right- sided pain, instructed to come to the hospital for further evaluation. Patient arrived to hospital called by nursing with pain and discomfort more right-sided, instructed nursing to give IV fluid bolus and IV Rocephin with suspicion of pyelonephritis. Called back by nursing with no improvement given order for Zofran and labs, also CT abdomen and pelvis with IV contrast ordered. Arrived to hospital for self evaluation. Overall patient appears mild discomfort in bed. Abdomen tender in light right lower quadrant with negative rebound tenderness or guarding. Bedside ultrasound with cephalic presentation TEJAL subjectively within normal limits and no signs of abruption. After further discussion with patient, discussed suspicion for nephrolithiasis versus appendicitis. Educated patient on possibility both diagnoses and also evaluation plan. Patient state understanding, partner stated understanding. CT abdomen pelvis performed and noted right nephrolithiasis noted. Educated patient on findings, discussed treatment options. Discussed pain control including use of narcotics risk benefits alternatives. Discussed risks for use of narcotics. Patient states understanding and feels that she is under excruciating pain and needs something more. Discussed options. Patient elects for Dilaudid as needed, Dilaudid as needed ordered. Flomax ordered. IV fluid bolus again ordered and IV fluids normal saline at 150 cc after bolus completes. Will consider urology consult, discussed with patient the option for urology consult. All questions answered by patient and partner. All questions answered by nursing
[2022-09-16] MEDS: Tamsulosin HCl 0.4 MG Capsule PO (06:34)
[2022-09-16] MEDS: 0.9% Normal Saline 1,000 ML 150 ML IV (07:19)
[2022-09-16 07:29] VITALS: O2SAT 98
[2022-09-16 07:30] VITALS: BP 117/64; PULSE 75
[2022-09-16 08:24] LABS: BUN 7 mg/dL (7-18); Glucose 90 mg/dL (74-106)
[2022-09-16 08:25] LABS: Anion Gap 8 (5-15); BUN/Creat Ratio 7.4 RATIO (10-20); Calcium,Total 8.8 mg/dL (8.5-10.1); Chloride 108 mmol/L (98-107); Creatinine, Serum 0.94 mg/dL (0.55-1.02); EST Glomerular Filtration Rate 76 mL/min (>60); Est Glom Filt Rate - Afr Amer 92 mL/min (>60); Estimated Creatinine Clearance 80.89 ml/min; Potassium 3.8 mmol/L (3.5-5.1); Sodium Level 139 mmol/L (136-145)
--- NOTE | 2022-09-16 08:52 | NURSING ---
This nurse spoke to we discussed her plan of care. We will continue with IV fluids and cont to strain her urine, and treat her pain. He is aware she has only used Tylenol at this time. We discussed the size of the stone, he did inform me that the urologist here in town are on vacation and unavailable. The pt would need to be transferred if she needed further tx such as a stent. On rounds at this time pt is sleeping.
[2022-09-16 09:49] LABS: Hematocrit 33.8 % (37-47); Hemoglobin 11.3 g/dL (12.0-15.0); Mean Corp Hgb Conc 33.4 g/dL (32-36); Mean Corpuscular Hgb 28.9 pg (27.0-32.0); Mean Corpuscular Volume 86.4 fL (81-99); Mean Platelet Vol. 9.1 fl (6.2-12.0); Platelet Count 336 K/mm3 (150-450); RBC Distribution Width CV 13.2 % (11.6-14.6); RBC Distribution Width SD 41.2 fl (35.1-43.9); Red Blood Count 3.91 M/mm3 (4.2-5.4); White Blood Count 17.2 K/mm3 (4.4-11.0)
[2022-09-16 10:54] VITALS: TEMP 36.7
[2022-09-16 10:55] VITALS: BP 122/74; PULSE 82
== END 2022-09-16 12:13 | disposition home or self-care (01) ==
LOC: WPOUT 05:53 → WP 05:54
PROVIDERS: PCP Nurse Practitioner Family; Visit Provider Obstetrics & Gynecology
DX: O99.891 Other specified diseases and conditions complicating pregnancy (principal); N20.0 Calculus of kidney; Z3A.26 26 weeks gestation of pregnancy; Z79.899 Other long term (current) drug therapy; Z87.891 Personal history of nicotine dependence
CPT/HCPCS: 96365; 96375; 96361; 36415; 59025; 59050; 74177; 80048; 85027; J7030; Q9967; A4216; J2405

== ENCOUNTER 2022-12-22 07:05 | Inpatient (IN) | payer MEDICAID, SELFPAY ==
[2022-12-22] VITALS (42 sets, daily range): BP systolic 94–125; BP diastolic 46–84; PULSE 65–91; RESP 16; TEMP 35.8–36.6; O2SAT 97–100; BMI 37.3
--- NOTE | 2022-12-22 07:27 | HP.PCM.OB_ITS ---
History and Physical Date of Admission: 12/22/22 HPI: 27-year-old G1, P0 at 40/3 weeks, INGRID 12/19/2022 by LMP, admitted for elective induction of labor. Denies regular contractions, leaking of fluid, vaginal bleeding. Reports movement. Denies headache or vision changes, chest pain or shortness of breath, nausea or vomiting, diarrhea constipation, fevers or chills. complicated by: History of nephrolithiasis status post laser [facility] September 2022, class II obesity CASE FINISHER history: G1: Current Medical history: 1. History of nephrolithiasis 2022 2. Class II obesity Surgical history: 1. Laser of renal stone 2022 2. Cholecystectomy in 2019 Family history: Denies history of blood clots or bleeding disorders Allergies: 1. Nickel 2. Peppermint Medications: 1. Social history: Denies tobacco, alcohol, drug use. Reports former tobacco use. Review of system: Negative otherwise stated above Physical exam: Blood pressure 125/79, heart rate 81, temp 97.0 ?F, pulse ox 98% on room air General: No acute distress HEENT: Normal cephalic/atraumatic, PERRLA Cardiorespiratory: No increased effort Abdomen: Soft, nontender, gravid Extremities: No edema Neurologic: Cranial nerves II through XII grossly intact, no focal deficits Musculoskeletal: Moves all extremities equally heart rate: 145/mod delia/+accel/no decel [place]: quiet Assessment/plan: 27-year-old G1, P0 at 40/3 weeks, INGRID 12/19/2022 by LMP, admitted for elective induction of labor. complicated by: History of nephrolithiasis status post laser [facility] in September 2022, class II obesity. ?Admit for induction of labor at term ? Beta strep negative ? Induction of labor with Cytotec ? Epidural at any time per patient request
[2022-12-22] MEDS: Lactated Ringers 1,000 ML 50 ML IV (08:20)
[2022-12-22] MEDS: miSOPROStol 25 MCG TABLET VAGINAL ×2 (08:25→12:12)
[2022-12-22 08:44] LABS: Absolute Lymphocyte Count 2.16 X10^3/uL (0.83-4.51); Absolute Neutrophil Count 8.7 X10^3/uL (2.0-7.7); Basophil# 0.06 X10^3/uL; Basophil% 0.5 % (0-1); Eosinophils% 1.7 % (0-5); Hematocrit 32.4 % (37-47); Hemoglobin 10.7 g/dL (12.0-15.0); Lymphocyte # 2.16 X10^3/ul (0.83-4.51); Lymphocyte % 17.8 % (19-41); Mean Corpuscular Hgb 26.4 pg (27.0-32.0); Mean Corpuscular Volume 79.8 fL (81-99); Mean Platelet Vol. 9.7 fl (6.2-12.0); Monocyte% 7.4 % (0-10); NRBC Flagged by Analyzer 0 % (0-5); Neutrophil # 8.68 X10^3/uL (2.7-7.7); Neutrophil % 71.7 % (47-70); Platelet Count 416 K/mm3 (150-450); RBC Distribution Width CV 14.6 % (11.6-14.6); RBC Distribution Width SD 42.1 fl (35.1-43.9); Red Blood Count 4.06 M/mm3 (4.2-5.4); White Blood Count 12.1 K/mm3 (4.4-11.0)
[2022-12-22 09:14] LABS: Amphetamine Urine VISTA NEGATIVE (<1000 ng/mL); Barbiturate Urine VISTA NEGATIVE (< 200 ng/mL); Benzodiazepine Urine VISTA NEGATIVE (< 200 ng/mL); Cocaine Urine VISTA NEGATIVE (< 300 ng/mL); Ecstacy Urine VISTA NEGATIVE (< 500 ng/mL); Methadone Urine VISTA NEGATIVE (< 300 ng/mL); PCP Urine VISTA NEGATIVE (< 25 ng/mL); THC Urine VISTA POSITIVE (< 50 ng/mL); Vista UDS pH Range 7
[2022-12-22] MEDS: Mag Hydrox/Al Hydrox/Simeth 30 ML UDC PO (09:25)
[2022-12-22 09:31] LABS: Syphilis Antibodies Non-reactive
[2022-12-22] MEDS: LACTATED RINGERS 500 ML 999 ML IV ×3 (15:40→20:45)
[2022-12-22] MEDS: fentaNYL-bupivacaine (epidural) 100 ML BAG EPIDURAL ×2 (16:20→21:39)
[2022-12-22] MEDS: Ondansetron 4 MG/2 ML Vial IV (17:47)
[2022-12-22] MEDS: Lactated Ringers 1,000 ML 200 ML IV ×2 (18:38→22:23)
[2022-12-22] MEDS: Oxytocin 15 Units/NS 250ml 15 UNITS/250 ML IV.SOLN 2 UNITS IV (19:01)
[2022-12-22] MEDS: Acetaminophen 500 MG Tablet PO (23:23)
[2022-12-22] MEDS: Sodium Citrate/Citric Acid 30 ML UDC PO (23:23)
--- NOTE | 2022-12-22 23:41 | PCM.PN.OB ---
Subjective Subjective Patient resting comfortably in bed. Pain well controlled with epidural Objective Data Objective Data Vital Signs: Vital Signs Temp Pulse Resp BP Pulse Ox O2 Del Method 97.3 F L 78 16 119/67 100 Room Air 12/22/22 23:15 12/22/22 23:15 12/22/22 23:08 12/22/22 23:15 12/22/22 23:08 12/22/22 23:08 Oxygen Delivery Method Room Air Weight: 224 lb 2 oz Body Mass Index (BMI) 37.3 Intake & Output: Intake and Output for Last 24 Hours 12/20/22 12/21/22 12/22/22 23:59 23:59 23:59 Intake Total 2716.02 / 2716.02 Output Total 1450 / 1450 Balance 1266.02 / 1266.02 Lab / Micro Data 12/22/22 08:15 Labs: Laboratory Results - last 24 hr 12/22/22 08:15: WBC 12.1 H, RBC 4.06 L, Hgb 10.7 L, Hct 32.4 L, MCV 79.8 L, MCH 26.4 L, MCHC 33.0, RDW Std Deviation 42.1, RDW Coeff of [place] 14.6, Plt Count 416, MPV 9.7, Immature Gran % (Auto) 0.900, Neut % (Auto) 71.7 H, Lymph % (Auto) 17.8 L, [place] % (Auto) 7.4, Eos % (Auto) 1.7, Baso % (Auto) 0.5, Absolute Neuts (auto) 8.7 H, Absolute Lymphs (auto) 2.16, Nucleated RBC % 0, Urine Opiates Screen NEGATIVE, Urine Methadone Screen NEGATIVE, Ur Barbiturates Screen NEGATIVE, Ur Phencyclidine Scrn NEGATIVE, Ur Amphetamines Screen NEGATIVE, MDMA (Ecstasy) Screen NEGATIVE, U Benzodiazepines Scrn NEGATIVE, Urine Cocaine Screen NEGATIVE, U Cannabinoids Screen POSITIVE H, Ur Drug Screen Comment , Syphilis Total Ab Non-reactive, Blood Type O POSITIVE, Antibody Screen NEGATIVE Physical Exam Const alert, oriented x3, average body habitus, healthy appearing and well nourished HEENT normocephalic and moist oral mucous membranes Eyes PERRL Neck full ROM Resp normal respiratory effort, no retractions and no use of accessory muscles GI GI Narrative: Soft, nontender, gravid Psych mental status grossly normal, affect normal, speech normal and activity/motor behavior normal Assessment & Plan (1) : PLAN: Initially called by nursing with recurrent decelerations reviewed heart rate tracing with nursing and discussed position changes and to adjust Pitocin per protocol and okay to turn off Pitocin to resolve heart tracings. Reviewed algorithm for category 2 tracing and just prior to meeting criteria for section heart rate tracing resolved. Hours later called by nursing again with recurrent decelerations reviewed heart rate tracing and noted to have moderate variability with recurrent decelerations greater than 50% of the contractions for greater than 1 hour therefore instructed for primary section based on Richard Cha's management of category 2 tracing algorithm. Educated nursing on findings, given orders to call Surgical team and prepare for primary section for nonreassuring heart tones. Given orders nursing for 2 g Ancef and 500 mg of azithromycin. Patient seen and examined, educated patient and partner on heart rate tracing and need for section risk benefits alternatives discussed include but are not limited to visceral or vascular injury, prolonged hospitalization, blood loss need for transfusion, reoperation. Patient state understanding and wished to proceed with procedure and okay with transfusion if needed. All questions answered and consent signed. Discussed case with anesthesia. For primary section now
[2022-12-23] VITALS (18 sets, daily range): BP systolic 101–133; BP diastolic 56–80; PULSE 65–93; RESP 12–18; TEMP 36.2–36.7; O2SAT 98–100
[2022-12-23] MEDS: Cefazolin 2 GM in 0.9% Normal Saline 100 ML IV (00:07)
--- NOTE | 2022-12-23 00:46 | EX.PCM.OBRPT ---
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 Normal uterus, tubes, and ovaries. Consent: Patient arrived for induction of labor at term subsequent with nonreassuring heart tones and elected for primary section Via Pfannenstiel incision. Patient understands risk of the procedure include but are not limited to visceral or vascular injury, prolonged hospitalization, blood loss need for transfusion, reoperation. Patient state understanding wish to proceed. All questions were answered and consent was signed. Procedure: Patient was brought back to the OR where epidural anesthesia was found to be adequate. 2 g of Ancef and 500 mg of azithromycin were given for infection prophylaxis. Patient was prepared and draped in a supine position with leftward tilt. A Pfannenstiel incision was made at the skin with a scalpel. The incision was carried down to the fascia with scalpel. The fascia was excised and extended laterally. Rectus muscle was dissected at the midline down to the level of the pubic symphysis. Preperitoneal fat tissue was noted peritoneum was entered bluntly. Peritoneum was extended superiorly and inferiorly with good visualization of bladder. Bladder blade was inserted and vesicouterine peritoneum was identified. Low transverse hysterotomy was made. Hand was placed into the incision and gentle fundal pressure was applied once the head was brought into the incision and the bladder blade was removed. Head and shoulders were delivered with ease. Cord was clamped and cut. Baby handed off to nursing. Placenta was delivered via cord traction and fundal massage. IV oxytocin was initiated in order to facilitate uterine contractions. Uterus was exteriorized and wiped out with dry laparotomy sponge in order to remove remaining placental membranes. Uterus was closed in continuous running fashion. Good hemostasis was noted. Uterus was placed back in the abdominal cavity and the incision was reinspected, good hemostasis was noted. Fascia was closed in continuous running fashion with PDS suture. Subcutaneous irrigation was performed and the good hemostasis was noted. Skin was closed in a subcuticular fashion. Good hemostasis was noted. All counts were correct x2. Patient tolerated procedure well and was brought to recovery in stable condition.
[2022-12-23] MEDS: Oxytocin 15 Units/NS 250ml 15 UNITS/250 ML IV.SOLN 83 UNITS IV (01:05)
[2022-12-23] MEDS: Lactated Ringers 1,000 ML 100 ML IV (01:05)
[2022-12-23] MEDS: 0.9% Saline Lock 10 ML Syringe IV (02:26)
[2022-12-23] MEDS: Ketorolac 30 MG/ML Syringe IV ×4 (02:26→21:39)
[2022-12-23] MEDS: Acetaminophen 500 MG Tablet 1000 MG PO ×3 (05:09→17:58)
--- NOTE | 2022-12-23 07:10 | PCM.NUR.HP ---
Subjective Subjective: Note cancelled. Objective Objective Data: 12/22/22 07:33 12/22/22 07:33 12/22/22 07:33 Temperature Temperature Source Pulse Rate 81 91 Respiratory Rate Respiratory Pattern Blood Pressure 125/79 H Blood Pressure [BP] Blood Pressure Mean Blood Pressure Mean [BP] BP Systolic 125 BP Diastolic 79 Blood Pressure Source Blood Pressure Source [BP] Blood Pressure Position Blood Pressure Position [BP] Blood Pressure Location Blood Pressure Location [BP] Pulse Ox Oxygen Delivery Method 12/22/22 07:33 12/22/22 07:36 12/22/22 07:36 Temperature 97.0 F L Temperature Source Temporal Pulse Rate Respiratory Rate Respiratory Pattern Blood Pressure Blood Pressure [BP] Blood Pressure Mean Blood Pressure Mean [BP] BP Systolic BP Diastolic Blood Pressure Source Blood Pressure Source [BP] Blood Pressure Position Blood Pressure Position [BP] Blood Pressure Location Blood Pressure Location [BP] Pulse Ox 98 Oxygen Delivery Method 12/22/22 09:03 12/22/22 09:03 12/22/22 09:03 Temperature Temperature Source Temporal Pulse Rate 66 Respiratory Rate Respiratory Pattern Blood Pressure 111/68 Blood Pressure [BP] Blood Pressure Mean Blood Pressure Mean [BP] BP Systolic 111 BP Diastolic 68 Blood Pressure Source Blood Pressure Source [BP] Blood Pressure Position Blood Pressure Position [BP] Blood Pressure Location Blood Pressure Location [BP] Pulse Ox Oxygen Delivery Method 12/22/22 09:03 12/22/22 09:03 12/22/22 11:13 Temperature 96.4 F L Temperature Source Pulse Rate 74 Respiratory Rate Respiratory Pattern Blood Pressure Blood Pressure [BP] Blood Pressure Mean Blood Pressure Mean [BP] BP Systolic BP Diastolic Blood Pressure Source Blood Pressure Source [BP] Blood Pressure Position Blood Pressure Position [BP] Blood Pressure Location Blood Pressure Location [BP] Pulse Ox 98 Oxygen Delivery Method 12/22/22 11:13 12/22/22 11:14 12/22/22 11:14 Temperature Temperature Source Pulse Rate 72 Respiratory Rate Respiratory Pattern Blood Pressure 113/67 Blood Pressure [BP] Blood Pressure Mean Blood Pressure Mean [BP] BP Systolic 113 BP Diastolic 67 Blood Pressure Source Blood Pressure Source [BP] Blood Pressure Position Blood Pressure Position [BP] Blood Pressure Location Blood Pressure Location [BP] Pulse Ox 98 Oxygen Delivery Method 12/22/22 11:14 12/22/22 11:14 12/22/22 11:14 Temperature 97.2 F L Temperature Source Temporal Pulse Rate Respiratory Rate Respiratory Pattern Blood Pressure Blood Pressure [BP] Blood Pressure Mean Blood Pressure Mean [BP] BP Systolic BP Diastolic Blood Pressure Source Blood Pressure Source [BP] Blood Pressure Position Blood Pressure Position [BP] Blood Pressure Location Blood Pressure Location [BP] Pulse Ox 98 Oxygen Delivery Method 12/22/22 12:17 12/22/22 12:17 12/22/22 12:17 Temperature Temperature Source Temporal Pulse Rate 65 Respiratory Rate Respiratory Pattern Blood Pressure 116/71 Blood Pressure [BP] Blood Pressure Mean Blood Pressure Mean [BP] BP Systolic 116 BP Diastolic 71 Blood Pressure Source Blood Pressure Source [BP] Blood Pressure Position Blood Pressure Position [BP] Blood Pressure Location Blood Pressure Location [BP] Pulse Ox Oxygen Delivery Method 12/22/22 12:17 12/22/22 12:17 12/22/22 14:14 Temperature 96.7 F L Temperature Source Pulse Rate Respiratory Rate Respiratory Pattern Blood Pressure 116/61 Blood Pressure [BP] Blood Pressure Mean Blood Pressure Mean [BP] BP Systolic 116 BP Diastolic 61 Blood Pressure Source Blood Pressure Source [BP] Blood Pressure Position Blood Pressure Position [BP] Blood Pressure Location Blood Pressure Location [BP] Pulse Ox 97 Oxygen Delivery Method 12/22/22 14:14 12/22/22 14:14 12/22/22 14:14 Temperature Temperature Source Temporal Pulse Rate 73 Respiratory Rate Respiratory Pattern Blood Pressure Blood Pressure [BP] Blood Pressure Mean Blood Pressure Mean [BP] BP Systolic BP Diastolic Blood Pressure Source Blood Pressure Source [BP] Blood Pressure Position Blood Pressure Position [BP] Blood Pressure Location Blood Pressure Location [BP] Pulse Ox 99 Oxygen Delivery Method 12/22/22 14:14 12/22/22 14:14 12/22/22 16:10 Temperature 97.4 F L Temperature Source Pulse Rate 72 Respiratory Rate Respiratory Pattern Blood Pressure Blood Pressure [BP] Blood Pressure Mean Blood Pressure Mean [BP] BP Systolic BP Diastolic Blood Pressure Source Blood Pressure Source [BP] Blood Pressure Position Blood Pressure Position [BP] Blood Pressure Location Blood Pressure Location [BP] Pulse Ox 99 Oxygen Delivery Method 12/22/22 16:10 12/22/22 16:17 12/22/22 16:17 Temperature Temperature Source Pulse Rate 68 Respiratory Rate Respiratory Pattern Blood Pressure 119/84 H Blood Pressure [BP] Blood Pressure Mean Blood Pressure Mean [BP] BP Systolic 119 BP Diastolic 84 Blood Pressure Source Blood Pressure Source [BP] Blood Pressure Position Blood Pressure Position [BP] Blood Pressure Location Blood Pressure Location [BP] Pulse Ox 100 Oxygen Delivery Method 12/22/22 16:16 12/22/22 16:21 12/22/22 16:21 Temperature Temperature Source Pulse Rate 70 Respiratory Rate Respiratory Pattern Blood Pressure Blood Pressure [BP] Blood Pressure Mean Blood Pressure Mean [BP] BP Systolic BP Diastolic Blood Pressure Source Blood Pressure Source [BP] Blood Pressure Position Blood Pressure Position [BP] Blood Pressure Location Blood Pressure Location [BP] Pulse Ox 99 100 Oxygen Delivery Method 12/22/22 16:24 12/22/22 16:24 12/22/22 16:24 Temperature Temperature Source Temporal Pulse Rate 74 Respiratory Rate Respiratory Pattern Blood Pressure 121/65 H Blood Pressure [BP] Blood Pressure Mean Blood Pressure Mean [BP] BP Systolic 121 BP Diastolic 65 Blood Pressure Source Blood Pressure Source [BP] Blood Pressure Position Blood Pressure Position [BP] Blood Pressure Location Blood Pressure Location [BP] Pulse Ox Oxygen Delivery Method 12/22/22 16:24 12/22/22 16:24 12/22/22 16:26 Temperature 97.3 F L Temperature Source Pulse Rate 67 Respiratory Rate Respiratory Pattern Blood Pressure Blood Pressure [BP] Blood Pressure Mean Blood Pressure Mean [BP] BP Systolic BP Diastolic Blood Pressure Source Blood Pressure Source [BP] Blood Pressure Position Blood Pressure Position [BP] Blood Pressure Location Blood Pressure Location [BP] Pulse Ox 100 Oxygen Delivery Method 12/22/22 16:26 12/22/22 16:27 12/22/22 16:27 Temperature Temperature Source Pulse Rate 70 Respiratory Rate Respiratory Pattern Blood Pressure 118/75 Blood Pressure [BP] Blood Pressure Mean Blood Pressure Mean [BP] BP Systolic 118 BP Diastolic 75 Blood Pressure Source Blood Pressure Source [BP] Blood Pressure Position Blood Pressure Position [BP] Blood Pressure Location Blood Pressure Location [BP] Pulse Ox 100 Oxygen Delivery Method 12/22/22 16:31 12/22/22 16:31 12/22/22 16:32 Temperature Temperature Source Pulse Rate 67 Respiratory Rate Respiratory Pattern Blood Pressure 113/72 Blood Pressure [BP] Blood Pressure Mean Blood Pressure Mean [BP] BP Systolic 113 BP Diastolic 72 Blood Pressure Source Blood Pressure Source [BP] Blood Pressure Position Blood Pressure Position [BP] Blood Pressure Location Blood Pressure Location [BP] Pulse Ox 100 Oxygen Delivery Method 12/22/22 16:32 12/22/22 16:36 12/22/22 16:36 Temperature Temperature Source Pulse Rate 67 73 Respiratory Rate Respiratory Pattern Blood Pressure Blood Pressure [BP] Blood Pressure Mean Blood Pressure Mean [BP] BP Systolic BP Diastolic Blood Pressure Source Blood Pressure Source [BP] Blood Pressure Position Blood Pressure Position [BP] Blood Pressure Location Blood Pressure Location [BP] Pulse Ox 99 Oxygen Delivery Method 12/22/22 16:42 12/22/22 16:42 12/22/22 16:41 Temperature Temperature Source Pulse Rate 80 Respiratory Rate Respiratory Pattern Blood Pressure 117/62 Blood Pressure [BP] Blood Pressure Mean Blood Pressure Mean [BP] BP Systolic 117 BP Diastolic 62 Blood Pressure Source Blood Pressure Source [BP] Blood Pressure Position Blood Pressure Position [BP] Blood Pressure Location Blood Pressure Location [BP] Pulse Ox 97 Oxygen Delivery Method 12/22/22 16:47 12/22/22 16:47 12/22/22 16:52 Temperature Temperature Source Pulse Rate 82 Respiratory Rate Respiratory Pattern Blood Pressure 113/56 L 114/60 Blood Pressure [BP] Blood Pressure Mean Blood Pressure Mean [BP] BP Systolic 113 114 BP Diastolic 56 60 Blood Pressure Source Blood Pressure Source [BP] Blood Pressure Position Blood Pressure Position [BP] Blood Pressure Location Blood Pressure Location [BP] Pulse Ox Oxygen Delivery Method 12/22/22 16:52 12/22/22 16:57 12/22/22 16:57 Temperature Temperature Source Pulse Rate 81 71 Respiratory Rate Respiratory Pattern Blood Pressure 103/60 Blood Pressure [BP] Blood Pressure Mean Blood Pressure Mean [BP] BP Systolic 103 BP Diastolic 60 Blood Pressure Source Blood Pressure Source [BP] Blood Pressure Position Blood Pressure Position [BP] Blood Pressure Location Blood Pressure Location [BP] Pulse Ox Oxygen Delivery Method 12/22/22 17:02 12/22/22 17:02 12/22/22 17:08 Temperature Temperature Source Pulse Rate 66 Respiratory Rate Respiratory Pattern Blood Pressure 111/59 L 114/58 L Blood Pressure [BP] Blood Pressure Mean Blood Pressure Mean [BP] BP Systolic 111 114 BP Diastolic 59 58 Blood Pressure Source Blood Pressure Source [BP] Blood Pressure Position Blood Pressure Position [BP] Blood Pressure Location Blood Pressure Location [BP] Pulse Ox Oxygen Delivery Method 12/22/22 17:08 12/22/22 17:12 12/22/22 17:12 Temperature Temperature Source Pulse Rate 68 74 Respiratory Rate Respiratory Pattern Blood Pressure 109/58 L Blood Pressure [BP] Blood Pressure Mean Blood Pressure Mean [BP] BP Systolic 109 BP Diastolic 58 Blood Pressure Source Blood Pressure Source [BP] Blood Pressure Position Blood Pressure Position [BP] Blood Pressure Location Blood Pressure Location [BP] Pulse Ox Oxygen Delivery Method 12/22/22 17:27 12/22/22 17:27 12/22/22 17:49 Temperature Temperature Source Temporal Pulse Rate 68 Respiratory Rate Respiratory Pattern Blood Pressure 109/63 Blood Pressure [BP] Blood Pressure Mean Blood Pressure Mean [BP] BP Systolic 109 BP Diastolic 63 Blood Pressure Source Blood Pressure Source [BP] Blood Pressure Position Blood Pressure Position [BP] Blood Pressure Location Blood Pressure Location [BP] Pulse Ox Oxygen Delivery Method 12/22/22 17:49 12/22/22 17:50 12/22/22 17:50 Temperature 97.4 F L Temperature Source Pulse Rate 72 Respiratory Rate Respiratory Pattern Blood Pressure 105/55 L Blood Pressure [BP] Blood Pressure Mean Blood Pressure Mean [BP] BP Systolic 105 BP Diastolic 55 Blood Pressure Source Blood Pressure Source [BP] Blood Pressure Position Blood Pressure Position [BP] Blood Pressure Location Blood Pressure Location [BP] Pulse Ox Oxygen Delivery Method 12/22/22 18:05 12/22/22 18:05 12/22/22 18:19 Temperature Temperature Source Pulse Rate 68 Respiratory Rate Respiratory Pattern Blood Pressure 94/46 L 94/52 L Blood Pressure [BP] Blood Pressure Mean Blood Pressure Mean [BP] BP Systolic 94 94 BP Diastolic 46 52 Blood Pressure Source Blood Pressure Source [BP] Blood Pressure Position Blood Pressure Position [BP] Blood Pressure Location Blood Pressure Location [BP] Pulse Ox Oxygen Delivery Method 12/22/22 18:19 12/22/22 18:32 12/22/22 18:32 Temperature Temperature Source Pulse Rate 65 73 Respiratory Rate Respiratory Pattern Blood Pressure 110/62 Blood Pressure [BP] Blood Pressure Mean Blood Pressure Mean [BP] BP Systolic 110 BP Diastolic 62 Blood Pressure Source Blood Pressure Source [BP] Blood Pressure Position Blood Pressure Position [BP] Blood Pressure Location Blood Pressure Location [BP] Pulse Ox Oxygen Delivery Method 12/22/22 18:45 12/22/22 18:45 12/22/22 18:55 Temperature Temperature Source Pulse Rate 72 Respiratory Rate Respiratory Pattern Blood Pressure 109/67 108/63 Blood Pressure [BP] Blood Pressure Mean Blood Pressure Mean [BP] BP Systolic 109 108 BP Diastolic 67 63 Blood Pressure Source Blood Pressure Source [BP] Blood Pressure Position Blood Pressure Position [BP] Blood Pressure Location Blood Pressure Location [BP] Pulse Ox Oxygen Delivery Method 12/22/22 18:55 12/22/22 19:25 12/22/22 19:25 Temperature Temperature Source Pulse Rate 72 71 Respiratory Rate Respiratory Pattern Blood Pressure 119/72 Blood Pressure [BP] Blood Pressure Mean Blood Pressure Mean [BP] BP Systolic 119 BP Diastolic 72 Blood Pressure Source Blood Pressure Source [BP] Blood Pressure Position Blood Pressure Position [BP] Blood Pressure Location Blood Pressure Location [BP] Pulse Ox Oxygen Delivery Method 12/22/22 19:25 12/22/22 19:25 12/22/22 20:08 Temperature 97.4 F L Temperature Source Temporal Temporal Pulse Rate Respiratory Rate Respiratory Pattern Blood Pressure Blood Pressure [BP] Blood Pressure Mean Blood Pressure Mean [BP] BP Systolic BP Diastolic Blood Pressure Source Blood Pressure Source [BP] Blood Pressure Position Blood Pressure Position [BP] Blood Pressure Location Blood Pressure Location [BP] Pulse Ox Oxygen Delivery Method 12/22/22 20:08 12/22/22 20:08 12/22/22 20:08 Temperature 97.9 F Temperature Source Pulse Rate 73 Respiratory Rate Respiratory Pattern Blood Pressure 116/65 Blood Pressure [BP] Blood Pressure Mean Blood Pressure Mean [BP] BP Systolic 116 BP Diastolic 65 Blood Pressure Source Blood Pressure Source [BP] Blood Pressure Position Blood Pressure Position [BP] Blood Pressure Location Blood Pressure Location [BP] Pulse Ox Oxygen Delivery Method 12/22/22 21:07 12/22/22 21:08 12/22/22 21:08 Temperature Temperature Source Temporal Pulse Rate 75 Respiratory Rate Respiratory Pattern Blood Pressure 119/77 Blood Pressure [BP] Blood Pressure Mean Blood Pressure Mean [BP] BP Systolic 119 BP Diastolic 77 Blood Pressure Source Blood Pressure Source [BP] Blood Pressure Position Blood Pressure Position [BP] Blood Pressure Location Blood Pressure Location [BP] Pulse Ox Oxygen Delivery Method 12/22/22 21:07 12/22/22 21:08 12/22/22 21:08 Temperature 97.9 F 97.9 F Temperature Source Pulse Rate Respiratory Rate Respiratory Pattern Blood Pressure Blood Pressure [BP] Blood Pressure Mean Blood Pressure Mean [BP] BP Systolic BP Diastolic Blood Pressure Source Blood Pressure Source [BP] Blood Pressure Position Blood Pressure Position [BP] Blood Pressure Location Blood Pressure Location [BP] Pulse Ox 100 Oxygen Delivery Method 12/22/22 22:18 12/22/22 22:19 12/22/22 22:19 Temperature Temperature Source Temporal Pulse Rate 80 Respiratory Rate Respiratory Pattern Blood Pressure 117/57 L Blood Pressure [BP] Blood Pressure Mean Blood Pressure Mean [BP] BP Systolic 117 BP Diastolic 57 Blood Pressure Source Blood Pressure Source [BP] Blood Pressure Position Blood Pressure Position [BP] Blood Pressure Location Blood Pressure Location [BP] Pulse Ox Oxygen Delivery Method 12/22/22 22:18 12/22/22 22:18 12/22/22 23:00 Temperature 97.5 F L Temperature Source Pulse Rate 75 Respiratory Rate Respiratory Pattern Blood Pressure Blood Pressure [BP] Blood Pressure Mean Blood Pressure Mean [BP] BP Systolic BP Diastolic Blood Pressure Source Blood Pressure Source [BP] Blood Pressure Position Blood Pressure Position [BP] Blood Pressure Location Blood Pressure Location [BP] Pulse Ox 99 Oxygen Delivery Method 12/22/22 23:00 12/22/22 23:15 12/22/22 23:15 Temperature Temperature Source Temporal Pulse Rate Respiratory Rate Respiratory Pattern Blood Pressure 119/67 Blood Pressure [BP] Blood Pressure Mean Blood Pressure Mean [BP] BP Systolic 119 BP Diastolic 67 Blood Pressure Source Blood Pressure Source [BP] Blood Pressure Position Blood Pressure Position [BP] Blood Pressure Location Blood Pressure Location [BP] Pulse Ox 99 Oxygen Delivery Method 12/22/22 23:15 12/22/22 23:15 12/23/22 01:27 Temperature 97.3 F L Temperature Source Temporal Pulse Rate 78 Respiratory Rate Respiratory Pattern Blood Pressure Blood Pressure [BP] Blood Pressure Mean Blood Pressure Mean [BP] BP Systolic BP Diastolic Blood Pressure Source Blood Pressure Source [BP] Blood Pressure Position Blood Pressure Position [BP] Blood Pressure Location Blood Pressure Location [BP] Pulse Ox Oxygen Delivery Method 12/23/22 01:00 12/23/22 02:00 12/23/22 02:30 Temperature Temperature Source Temporal Temporal Temporal Pulse Rate Respiratory Rate Respiratory Pattern Blood Pressure Blood Pressure [BP] Blood Pressure Mean Blood Pressure Mean [BP] BP Systolic BP Diastolic Blood Pressure Source Blood Pressure Source [BP] Blood Pressure Position Blood Pressure Position [BP] Blood Pressure Location Blood Pressure Location [BP] Pulse Ox Oxygen Delivery Method 12/23/22 03:00 12/23/22 04:00 12/23/22 05:05 Temperature Temperature Source Temporal Temporal Temporal Pulse Rate Respiratory Rate Respiratory Pattern Blood Pressure Blood Pressure [BP] Blood Pressure Mean Blood Pressure Mean [BP] BP Systolic BP Diastolic Blood Pressure Source Blood Pressure Source [BP] Blood Pressure Position Blood Pressure Position [BP] Blood Pressure Location Blood Pressure Location [BP] Pulse Ox Oxygen Delivery Method 12/23/22 06:41 12/22/22 23:08 12/23/22 01:27 Temperature 97.5 F L 98.1 F Temperature Source Temporal Temporal Temporal Pulse Rate 73 76 Respiratory Rate 16 16 Respiratory Pattern Normal Blood Pressure 119/67 107/56 L Blood Pressure [BP] Blood Pressure Mean 84 73 Blood Pressure Mean [BP] BP Systolic BP Diastolic Blood Pressure Source Monitor Monitor Blood Pressure Source [BP] Blood Pressure Position Semi-Fowlers Semi-Fowlers Blood Pressure Position [BP] Blood Pressure Location Right Arm Right Arm Blood Pressure Location [BP] Pulse Ox 100 99 Oxygen Delivery Method Room Air Room Air 12/23/22 01:00 12/23/22 01:15 12/23/22 01:30 Temperature 98.1 F Temperature Source Temporal Pulse Rate 81 72 77 Respiratory Rate 18 18 18 Respiratory Pattern Blood Pressure 107/56 L 120/57 L 107/66 Blood Pressure [BP] Blood Pressure Mean 73 78 79 Blood Pressure Mean [BP] BP Systolic BP Diastolic Blood Pressure Source Monitor Monitor Monitor Blood Pressure Source [BP] Blood Pressure Position Semi-Fowlers Semi-Fowlers Semi-Fowlers Blood Pressure Position [BP] Blood Pressure Location Right Arm Right Arm Right Arm Blood Pressure Location [BP] Pulse Ox 99 99 99 Oxygen Delivery Method Room Air Room Air Room Air 12/23/22 01:45 12/23/22 02:00 12/23/22 02:15 Temperature 97.9 F Temperature Source Temporal Pulse Rate 76 71 74 Respiratory Rate 12 18 18 Respiratory Pattern Blood Pressure 125/71 H 128/74 H 127/71 H Blood Pressure [BP] Blood Pressure Mean 89 92 89 Blood Pressure Mean [BP] BP Systolic BP Diastolic Blood Pressure Source Monitor Monitor Monitor Blood Pressure Source [BP] Blood Pressure Position Supine Semi-Fowlers Semi-Fowlers Blood Pressure Position [BP] Blood Pressure Location Right Arm Right Arm Right Arm Blood Pressure Location [BP] Pulse Ox 99 99 99 Oxygen Delivery Method Room Air Room Air Room Air 12/23/22 02:30 12/23/22 02:45 12/23/22 03:00 Temperature 97.9 F 98.1 F Temperature Source Temporal Temporal Pulse Rate 74 78 70 Respiratory Rate 18 18 18 Respiratory Pattern Blood Pressure 133/73 H 113/59 L 110/67 Blood Pressure [BP] Blood Pressure Mean 93 77 81 Blood Pressure Mean [BP] BP Systolic BP Diastolic Blood Pressure Source Monitor Monitor Monitor Blood Pressure Source [BP] Blood Pressure Position Semi-Fowlers Semi-Fowlers Semi-Fowlers Blood Pressure Position [BP] Blood Pressure Location Right Arm Right Arm Right Arm Blood Pressure Location [BP] Pulse Ox 99 99 99 Oxygen Delivery Method Room Air Room Air Room Air 12/23/22 04:00 12/23/22 05:05 12/23/22 06:41 Temperature 97.5 F L 98.0 F 97.6 F L Temperature Source Temporal Temporal Temporal Pulse Rate 77 78 73 Respiratory Rate 18 16 18 Respiratory Pattern Blood Pressure Blood Pressure [BP] 112/64 107/60 111/69 Blood Pressure Mean Blood Pressure Mean [BP] 80 75 83 BP Systolic BP Diastolic Blood Pressure Source Blood Pressure Source [BP] Monitor Monitor Monitor Blood Pressure Position Blood Pressure Position [BP] Semi-Fowlers Semi-Fowlers Semi-Fowlers Blood Pressure Location Blood Pressure Location [BP] Right Arm Right Arm Right Arm Pulse Ox 100 98 100 Oxygen Delivery Method Room Air Room Air Room Air Weight: 101.661 kg Vital Signs Temp Pulse Resp BP BP Pulse Ox O2 Del Method 12/23/22 06:41 97.6 F L 73 18 111/69 100 Room Air 12/23/22 05:05 98.0 F 78 16 107/60 98 Room Air 12/23/22 04:00 97.5 F L 77 18 112/64 100 Room Air 12/23/22 03:00 98.1 F 70 18 110/67 99 Room Air 12/23/22 02:45 78 18 113/59 L 99 Room Air 12/23/22 02:30 97.9 F 74 18 133/73 H 99 Room Air 12/23/22 02:15 74 18 127/71 H 99 Room Air 12/23/22 02:00 97.9 F 71 18 128/74 H 99 Room Air 12/23/22 01:45 76 12 125/71 H 99 Room Air 12/23/22 01:30 77 18 107/66 99 Room Air 12/23/22 01:15 72 18 120/57 L 99 Room Air 12/23/22 01:00 98.1 F 81 18 107/56 L 99 Room Air 12/23/22 01:27 98.1 F 76 16 107/56 L 99 Room Air 12/22/22 23:08 97.5 F L 73 16 119/67 100 Room Air 12/22/22 23:15 97.3 F L 12/22/22 23:15 78 12/22/22 23:15 119/67 12/22/22 23:00 99 12/22/22 23:00 75 12/22/22 22:18 97.5 F L 12/22/22 22:18 99 12/22/22 22:19 80 12/22/22 22:19 117/57 L 12/22/22 21:08 100 12/22/22 21:08 97.9 F 12/22/22 21:07 97.9 F 12/22/22 21:08 75 12/22/22 21:08 119/77 12/22/22 20:08 97.9 F 12/22/22 20:08 73 12/22/22 20:08 116/65 12/22/22 19:25 97.4 F L 12/22/22 19:25 71 12/22/22 19:25 119/72 12/22/22 18:55 72 12/22/22 18:55 108/63 12/22/22 18:45 72 12/22/22 18:45 109/67 12/22/22 18:32 73 12/22/22 18:32 110/62 12/22/22 18:19 65 12/22/22 18:19 94/52 L 12/22/22 18:05 68 12/22/22 18:05 94/46 L 12/22/22 17:50 72 12/22/22 17:50 105/55 L 12/22/22 17:49 97.4 F L 12/22/22 17:27 109/63 12/22/22 17:27 68 12/22/22 17:12 74 12/22/22 17:12 109/58 L 12/22/22 17:08 68 12/22/22 17:08 114/58 L 12/22/22 17:02 66 12/22/22 17:02 111/59 L 12/22/22 16:57 71 12/22/22 16:57 103/60 12/22/22 16:52 81 12/22/22 16:52 114/60 12/22/22 16:47 82 12/22/22 16:47 113/56 L 12/22/22 16:41 97 12/22/22 16:42 80 12/22/22 16:42 117/62 12/22/22 16:36 99 12/22/22 16:36 73 12/22/22 16:32 67 12/22/22 16:32 113/72 12/22/22 16:31 100 12/22/22 16:31 67 12/22/22 16:27 70 12/22/22 16:27 118/75 12/22/22 16:26 100 12/22/22 16:26 67 12/22/22 16:24 97.3 F L 12/22/22 16:24 100 12/22/22 16:24 74 12/22/22 16:24 121/65 H 12/22/22 16:21 100 12/22/22 16:21 70 12/22/22 16:16 99 12/22/22 16:17 68 12/22/22 16:17 119/84 H 12/22/22 16:10 100 12/22/22 16:10 72 12/22/22 14:14 97.4 F L 12/22/22 14:14 99 12/22/22 14:14 99 12/22/22 14:14 73 12/22/22 14:14 116/61 12/22/22 12:17 96.7 F L 12/22/22 12:17 97 12/22/22 12:17 65 12/22/22 12:17 116/71 12/22/22 11:14 97.2 F L 12/22/22 11:14 98 12/22/22 11:14 72 12/22/22 11:14 113/67 12/22/22 11:13 98 12/22/22 11:13 74 12/22/22 09:03 96.4 F L 12/22/22 09:03 98 12/22/22 09:03 66 12/22/22 09:03 111/68 12/22/22 07:36 97.0 F L 12/22/22 07:33 98 12/22/22 07:33 91 12/22/22 07:33 81 12/22/22 07:33 125/79 H Lab tests last 48H 12/22/22 08:15 WBC 12.1 H RBC 4.06 L Hgb 10.7 L Hct 32.4 L MCV 79.8 L MCH 26.4 L MCHC 33.0 RDW Std Deviation 42.1 RDW Coeff of [place] 14.6 Plt Count 416 MPV 9.7 Immature Gran % (Auto) 0.900 Neut % (Auto) 71.7 H Lymph % (Auto) 17.8 L [place] % (Auto) 7.4 Eos % (Auto) 1.7 Baso % (Auto) 0.5 Absolute Neuts (auto) 8.7 H Absolute Lymphs (auto) 2.16 Nucleated RBC % 0 Urine Opiates Screen NEGATIVE Urine Methadone Screen NEGATIVE Ur Barbiturates Screen NEGATIVE Ur Phencyclidine Scrn NEGATIVE Ur Amphetamines Screen NEGATIVE MDMA (Ecstasy) Screen NEGATIVE U Benzodiazepines Scrn NEGATIVE Urine Cocaine Screen NEGATIVE U Cannabinoids Screen POSITIVE H Ur Drug Screen Comment Syphilis Total Ab Non-reactive Blood Type O POSITIVE Antibody Screen NEGATIVE Vital Signs Vital Signs Vital Signs: 12/22/22 07:33 12/22/22 07:33 12/22/22 07:33 Temperature Temperature Source Pulse Rate 81 91 Respiratory Rate Respiratory Pattern Blood Pressure 125/79 H Blood Pressure [BP] Blood Pressure Mean Blood Pressure Mean [BP] BP Systolic 125 BP Diastolic 79 Blood Pressure Source Blood Pressure Source [BP] Blood Pressure Position Blood Pressure Position [BP] Blood Pressure Location Blood Pressure Location [BP] Pulse Ox Oxygen Delivery Method 12/22/22 07:33 12/22/22 07:36 12/22/22 07:36 Temperature 97.0 F L Temperature Source Temporal Pulse Rate Respiratory Rate Respiratory Pattern Blood Pressure Blood Pressure [BP] Blood Pressure Mean Blood Pressure Mean [BP] BP Systolic BP Diastolic Blood Pressure Source Blood Pressure Source [BP] Blood Pressure Position Blood Pressure Position [BP] Blood Pressure Location Blood Pressure Location [BP] Pulse Ox 98 Oxygen Delivery Method 12/22/22 09:03 12/22/22 09:03 12/22/22 09:03 Temperature Temperature Source Temporal Pulse Rate 66 Respiratory Rate Respiratory Pattern Blood Pressure 111/68 Blood Pressure [BP] Blood Pressure Mean Blood Pressure Mean [BP] BP Systolic 111 BP Diastolic 68 Blood Pressure Source Blood Pressure Source [BP] Blood Pressure Position Blood Pressure Position [BP] Blood Pressure Location Blood Pressure Location [BP] Pulse Ox Oxygen Delivery Method 12/22/22 09:03 12/22/22 09:03 12/22/22 11:13 Temperature 96.4 F L Temperature Source Pulse Rate 74 Respiratory Rate Respiratory Pattern Blood Pressure Blood Pressure [BP] Blood Pressure Mean Blood Pressure Mean [BP] BP Systolic BP Diastolic Blood Pressure Source Blood Pressure Source [BP] Blood Pressure Position Blood Pressure Position [BP] Blood Pressure Location Blood Pressure Location [BP] Pulse Ox 98 Oxygen Delivery Method 12/22/22 11:13 12/22/22 11:14 12/22/22 11:14 Temperature Temperature Source Pulse Rate 72 Respiratory Rate Respiratory Pattern Blood Pressure 113/67 Blood Pressure [BP] Blood Pressure Mean Blood Pressure Mean [BP] BP Systolic 113 BP Diastolic 67 Blood Pressure Source Blood Pressure Source [BP] Blood Pressure Position Blood Pressure Position [BP] Blood Pressure Location Blood Pressure Location [BP] Pulse Ox 98 Oxygen Delivery Method 12/22/22 11:14 12/22/22 11:14 12/22/22 11:14 Temperature 97.2 F L Temperature Source Temporal Pulse Rate Respiratory Rate Respiratory Pattern Blood Pressure Blood Pressure [BP] Blood Pressure Mean Blood Pressure Mean [BP] BP Systolic BP Diastolic Blood Pressure Source Blood Pressure Source [BP] Blood Pressure Position Blood Pressure Position [BP] Blood Pressure Location Blood Pressure Location [BP] Pulse Ox 98 Oxygen Delivery Method 12/22/22 12:17 12/22/22 12:17 12/22/22 12:17 Temperature Temperature Source Temporal Pulse Rate 65 Respiratory Rate Respiratory Pattern Blood Pressure 116/71 Blood Pressure [BP] Blood Pressure Mean Blood Pressure Mean [BP] BP Systolic 116 BP Diastolic 71 Blood Pressure Source Blood Pressure Source [BP] Blood Pressure Position Blood Pressure Position [BP] Blood Pressure Location Blood Pressure Location [BP] Pulse Ox Oxygen Delivery Method 12/22/22 12:17 12/22/22 12:17 12/22/22 14:14 Temperature 96.7 F L Temperature Source Pulse Rate Respiratory Rate Respiratory Pattern Blood Pressure 116/61 Blood Pressure [BP] Blood Pressure Mean Blood Pressure Mean [BP] BP Systolic 116 BP Diastolic 61 Blood Pressure Source Blood Pressure Source [BP] Blood Pressure Position Blood Pressure Position [BP] Blood Pressure Location Blood Pressure Location [BP] Pulse Ox 97 Oxygen Delivery Method 12/22/22 14:14 12/22/22 14:14 12/22/22 14:14 Temperature Temperature Source Temporal Pulse Rate 73 Respiratory Rate Respiratory Pattern Blood Pressure Blood Pressure [BP] Blood Pressure Mean Blood Pressure Mean [BP] BP Systolic BP Diastolic Blood Pressure Source Blood Pressure Source [BP] Blood Pressure Position Blood Pressure Position [BP] Blood Pressure Location Blood Pressure Location [BP] Pulse Ox 99 Oxygen Delivery Method 12/22/22 14:14 12/22/22 14:14 12/22/22 16:10 Temperature 97.4 F L Temperature Source Pulse Rate 72 Respiratory Rate Respiratory Pattern Blood Pressure Blood Pressure [BP] Blood Pressure Mean Blood Pressure Mean [BP] BP Systolic BP Diastolic Blood Pressure Source Blood Pressure Source [BP] Blood Pressure Position Blood Pressure Position [BP] Blood Pressure Location Blood Pressure Location [BP] Pulse Ox 99 Oxygen Delivery Method 12/22/22 16:10 12/22/22 16:17 12/22/22 16:17 Temperature Temperature Source Pulse Rate 68 Respiratory Rate Respiratory Pattern Blood Pressure 119/84 H Blood Pressure [BP] Blood Pressure Mean Blood Pressure Mean [BP] BP Systolic 119 BP Diastolic 84 Blood Pressure Source Blood Pressure Source [BP] Blood Pressure Position Blood Pressure Position [BP] Blood Pressure Location Blood Pressure Location [BP] Pulse Ox 100 Oxygen Delivery Method 12/22/22 16:16 12/22/22 16:21 12/22/22 16:21 Temperature Temperature Source Pulse Rate 70 Respiratory Rate Respiratory Pattern Blood Pressure Blood Pressure [BP] Blood Pressure Mean Blood Pressure Mean [BP] BP Systolic BP Diastolic Blood Pressure Source Blood Pressure Source [BP] Blood Pressure Position Blood Pressure Position [BP] Blood Pressure Location Blood Pressure Location [BP] Pulse Ox 99 100 Oxygen Delivery Method 12/22/22 16:24 12/22/22 16:24 12/22/22 16:24 Temperature Temperature Source Temporal Pulse Rate 74 Respiratory Rate Respiratory Pattern Blood Pressure 121/65 H Blood Pressure [BP] Blood Pressure Mean Blood Pressure Mean [BP] BP Systolic 121 BP Diastolic 65 Blood Pressure Source Blood Pressure Source [BP] Blood Pressure Position Blood Pressure Position [BP] Blood Pressure Location Blood Pressure Location [BP] Pulse Ox Oxygen Delivery Method 12/22/22 16:24 12/22/22 16:24 12/22/22 16:26 Temperature 97.3 F L Temperature Source Pulse Rate 67 Respiratory Rate Respiratory Pattern Blood Pressure Blood Pressure [BP] Blood Pressure Mean Blood Pressure Mean [BP] BP Systolic BP Diastolic Blood Pressure Source Blood Pressure Source [BP] Blood Pressure Position Blood Pressure Position [BP] Blood Pressure Location Blood Pressure Location [BP] Pulse Ox 100 Oxygen Delivery Method 12/22/22 16:26 12/22/22 16:27 12/22/22 16:27 Temperature Temperature Source Pulse Rate 70 Respiratory Rate Respiratory Pattern Blood Pressure 118/75 Blood Pressure [BP] Blood Pressure Mean Blood Pressure Mean [BP] BP Systolic 118 BP Diastolic 75 Blood Pressure Source Blood Pressure Source [BP] Blood Pressure Position Blood Pressure Position [BP] Blood Pressure Location Blood Pressure Location [BP] Pulse Ox 100 Oxygen Delivery Method 12/22/22 16:31 12/22/22 16:31 12/22/22 16:32 Temperature Temperature Source Pulse Rate 67 Respiratory Rate Respiratory Pattern Blood Pressure 113/72 Blood Pressure [BP] Blood Pressure Mean Blood Pressure Mean [BP] BP Systolic 113 BP Diastolic 72 Blood Pressure Source Blood Pressure Source [BP] Blood Pressure Position Blood Pressure Position [BP] Blood Pressure Location Blood Pressure Location [BP] Pulse Ox 100 Oxygen Delivery Method 12/22/22 16:32 12/22/22 16:36 12/22/22 16:36 Temperature Temperature Source Pulse Rate 67 73 Respiratory Rate Respiratory Pattern Blood Pressure Blood Pressure [BP] Blood Pressure Mean Blood Pressure Mean [BP] BP Systolic BP Diastolic Blood Pressure Source Blood Pressure Source [BP] Blood Pressure Position Blood Pressure Position [BP] Blood Pressure Location Blood Pressure Location [BP] Pulse Ox 99 Oxygen Delivery Method 12/22/22 16:42 12/22/22 16:42 12/22/22 16:41 Temperature Temperature Source Pulse Rate 80 Respiratory Rate Respiratory Pattern Blood Pressure 117/62 Blood Pressure [BP] Blood Pressure Mean Blood Pressure Mean [BP] BP Systolic 117 BP Diastolic 62 Blood Pressure Source Blood Pressure Source [BP] Blood Pressure Position Blood Pressure Position [BP] Blood Pressure Location Blood Pressure Location [BP] Pulse Ox 97 Oxygen Delivery Method 12/22/22 16:47 12/22/22 16:47 12/22/22 16:52 Temperature Temperature Source Pulse Rate 82 Respiratory Rate Respiratory Pattern Blood Pressure 113/56 L 114/60 Blood Pressure [BP] Blood Pressure Mean Blood Pressure Mean [BP] BP Systolic 113 114 BP Diastolic 56 60 Blood Pressure Source Blood Pressure Source [BP] Blood Pressure Position Blood Pressure Position [BP] Blood Pressure Location Blood Pressure Location [BP] Pulse Ox Oxygen Delivery Method 12/22/22 16:52 12/22/22 16:57 12/22/22 16:57 Temperature Temperature Source Pulse Rate 81 71 Respiratory Rate Respiratory Pattern Blood Pressure 103/60 Blood Pressure [BP] Blood Pressure Mean Blood Pressure Mean [BP] BP Systolic 103 BP Diastolic 60 Blood Pressure Source Blood Pressure Source [BP] Blood Pressure Position Blood Pressure Position [BP] Blood Pressure Location Blood Pressure Location [BP] Pulse Ox Oxygen Delivery Method 12/22/22 17:02 12/22/22 17:02 12/22/22 17:08 Temperature Temperature Source Pulse Rate 66 Respiratory Rate Respiratory Pattern Blood Pressure 111/59 L 114/58 L Blood Pressure [BP] Blood Pressure Mean Blood Pressure Mean [BP] BP Systolic 111 114 BP Diastolic 59 58 Blood Pressure Source Blood Pressure Source [BP] Blood Pressure Position Blood Pressure Position [BP] Blood Pressure Location Blood Pressure Location [BP] Pulse Ox Oxygen Delivery Method 12/22/22 17:08 12/22/22 17:12 12/22/22 17:12 Temperature Temperature Source Pulse Rate 68 74 Respiratory Rate Respiratory Pattern Blood Pressure 109/58 L Blood Pressure [BP] Blood Pressure Mean Blood Pressure Mean [BP] BP Systolic 109 BP Diastolic 58 Blood Pressure Source Blood Pressure Source [BP] Blood Pressure Position Blood Pressure Position [BP] Blood Pressure Location Blood Pressure Location [BP] Pulse Ox Oxygen Delivery Method 12/22/22 17:27 12/22/22 17:27 12/22/22 17:49 Temperature Temperature Source Temporal Pulse Rate 68 Respiratory Rate Respiratory Pattern Blood Pressure 109/63 Blood Pressure [BP] Blood Pressure Mean Blood Pressure Mean [BP] BP Systolic 109 BP Diastolic 63 Blood Pressure Source Blood Pressure Source [BP] Blood Pressure Position Blood Pressure Position [BP] Blood Pressure Location Blood Pressure Location [BP] Pulse Ox Oxygen Delivery Method 12/22/22 17:49 12/22/22 17:50 12/22/22 17:50 Temperature 97.4 F L Temperature Source Pulse Rate 72 Respiratory Rate Respiratory Pattern Blood Pressure 105/55 L Blood Pressure [BP] Blood Pressure Mean Blood Pressure Mean [BP] BP Systolic 105 BP Diastolic 55 Blood Pressure Source Blood Pressure Source [BP] Blood Pressure Position Blood Pressure Position [BP] Blood Pressure Location Blood Pressure Location [BP] Pulse Ox Oxygen Delivery Method 12/22/22 18:05 12/22/22 18:05 12/22/22 18:19 Temperature Temperature Source Pulse Rate 68 Respiratory Rate Respiratory Pattern Blood Pressure 94/46 L 94/52 L Blood Pressure [BP] Blood Pressure Mean Blood Pressure Mean [BP] BP Systolic 94 94 BP Diastolic 46 52 Blood Pressure Source Blood Pressure Source [BP] Blood Pressure Position Blood Pressure Position [BP] Blood Pressure Location Blood Pressure Location [BP] Pulse Ox Oxygen Delivery Method 12/22/22 18:19 12/22/22 18:32 12/22/22 18:32 Temperature Temperature Source Pulse Rate 65 73 Respiratory Rate Respiratory Pattern Blood Pressure 110/62 Blood Pressure [BP] Blood Pressure Mean Blood Pressure Mean [BP] BP Systolic 110 BP Diastolic 62 Blood Pressure Source Blood Pressure Source [BP] Blood Pressure Position Blood Pressure Position [BP] Blood Pressure Location Blood Pressure Location [BP] Pulse Ox Oxygen Delivery Method 12/22/22 18:45 12/22/22 18:45 12/22/22 18:55 Temperature Temperature Source Pulse Rate 72 Respiratory Rate Respiratory Pattern Blood Pressure 109/67 108/63 Blood Pressure [BP] Blood Pressure Mean Blood Pressure Mean [BP] BP Systolic 109 108 BP Diastolic 67 63 Blood Pressure Source Blood Pressure Source [BP] Blood Pressure Position Blood Pressure Position [BP] Blood Pressure Location Blood Pressure Location [BP] Pulse Ox Oxygen Delivery Method 12/22/22 18:55 12/22/22 19:25 12/22/22 19:25 Temperature Temperature Source Pulse Rate 72 71 Respiratory Rate Respiratory Pattern Blood Pressure 119/72 Blood Pressure [BP] Blood Pressure Mean Blood Pressure Mean [BP] BP Systolic 119 BP Diastolic 72 Blood Pressure Source Blood Pressure Source [BP] Blood Pressure Position Blood Pressure Position [BP] Blood Pressure Location Blood Pressure Location [BP] Pulse Ox Oxygen Delivery Method 12/22/22 19:25 12/22/22 19:25 12/22/22 20:08 Temperature 97.4 F L Temperature Source Temporal Temporal Pulse Rate Respiratory Rate Respiratory Pattern Blood Pressure Blood Pressure [BP] Blood Pressure Mean Blood Pressure Mean [BP] BP Systolic BP Diastolic Blood Pressure Source Blood Pressure Source [BP] Blood Pressure Position Blood Pressure Position [BP] Blood Pressure Location Blood Pressure Location [BP] Pulse Ox Oxygen Delivery Method 12/22/22 20:08 12/22/22 20:08 12/22/22 20:08 Temperature 97.9 F Temperature Source Pulse Rate 73 Respiratory Rate Respiratory Pattern Blood Pressure 116/65 Blood Pressure [BP] Blood Pressure Mean Blood Pressure Mean [BP] BP Systolic 116 BP Diastolic 65 Blood Pressure Source Blood Pressure Source [BP] Blood Pressure Position Blood Pressure Position [BP] Blood Pressure Location Blood Pressure Location [BP] Pulse Ox Oxygen Delivery Method 12/22/22 21:07 12/22/22 21:08 12/22/22 21:08 Temperature Temperature Source Temporal Pulse Rate 75 Respiratory Rate Respiratory Pattern Blood Pressure 119/77 Blood Pressure [BP] Blood Pressure Mean Blood Pressure Mean [BP] BP Systolic 119 BP Diastolic 77 Blood Pressure Source Blood Pressure Source [BP] Blood Pressure Position Blood Pressure Position [BP] Blood Pressure Location Blood Pressure Location [BP] Pulse Ox Oxygen Delivery Method 12/22/22 21:07 12/22/22 21:08 12/22/22 21:08 Temperature 97.9 F 97.9 F Temperature Source Pulse Rate Respiratory Rate Respiratory Pattern Blood Pressure Blood Pressure [BP] Blood Pressure Mean Blood Pressure Mean [BP] BP Systolic BP Diastolic Blood Pressure Source Blood Pressure Source [BP] Blood Pressure Position Blood Pressure Position [BP] Blood Pressure Location Blood Pressure Location [BP] Pulse Ox 100 Oxygen Delivery Method 12/22/22 22:18 12/22/22 22:19 12/22/22 22:19 Temperature Temperature Source Temporal Pulse Rate 80 Respiratory Rate Respiratory Pattern Blood Pressure 117/57 L Blood Pressure [BP] Blood Pressure Mean Blood Pressure Mean [BP] BP Systolic 117 BP Diastolic 57 Blood Pressure Source Blood Pressure Source [BP] Blood Pressure Position Blood Pressure Position [BP] Blood Pressure Location Blood Pressure Location [BP] Pulse Ox Oxygen Delivery Method 12/22/22 22:18 12/22/22 22:18 12/22/22 23:00 Temperature 97.5 F L Temperature Source Pulse Rate 75 Respiratory Rate Respiratory Pattern Blood Pressure Blood Pressure [BP] Blood Pressure Mean Blood Pressure Mean [BP] BP Systolic BP Diastolic Blood Pressure Source Blood Pressure Source [BP] Blood Pressure Position Blood Pressure Position [BP] Blood Pressure Location Blood Pressure Location [BP] Pulse Ox 99 Oxygen Delivery Method 12/22/22 23:00 12/22/22 23:15 12/22/22 23:15 Temperature Temperature Source Temporal Pulse Rate Respiratory Rate Respiratory Pattern Blood Pressure 119/67 Blood Pressure [BP] Blood Pressure Mean Blood Pressure Mean [BP] BP Systolic 119 BP Diastolic 67 Blood Pressure Source Blood Pressure Source [BP] Blood Pressure Position Blood Pressure Position [BP] Blood Pressure Location Blood Pressure Location [BP] Pulse Ox 99 Oxygen Delivery Method 12/22/22 23:15 12/22/22 23:15 12/23/22 01:27 Temperature 97.3 F L Temperature Source Temporal Pulse Rate 78 Respiratory Rate Respiratory Pattern Blood Pressure Blood Pressure [BP] Blood Pressure Mean Blood Pressure Mean [BP] BP Systolic BP Diastolic Blood Pressure Source Blood Pressure Source [BP] Blood Pressure Position Blood Pressure Position [BP] Blood Pressure Location Blood Pressure Location [BP] Pulse Ox Oxygen Delivery Method 12/23/22 01:00 12/23/22 02:00 12/23/22 02:30 Temperature Temperature Source Temporal Temporal Temporal Pulse Rate Respiratory Rate Respiratory Pattern Blood Pressure Blood Pressure [BP] Blood Pressure Mean Blood Pressure Mean [BP] BP Systolic BP Diastolic Blood Pressure Source Blood Pressure Source [BP] Blood Pressure Position Blood Pressure Position [BP] Blood Pressure Location Blood Pressure Location [BP] Pulse Ox Oxygen Delivery Method 12/23/22 03:00 12/23/22 04:00 12/23/22 05:05 Temperature Temperature Source Temporal Temporal Temporal Pulse Rate Respiratory Rate Respiratory Pattern Blood Pressure Blood Pressure [BP] Blood Pressure Mean Blood Pressure Mean [BP] BP Systolic BP Diastolic Blood Pressure Source Blood Pressure Source [BP] Blood Pressure Position Blood Pressure Position [BP] Blood Pressure Location Blood Pressure Location [BP] Pulse Ox Oxygen Delivery Method 12/23/22 06:41 12/22/22 23:08 12/23/22 01:27 Temperature 97.5 F L 98.1 F Temperature Source Temporal Temporal Temporal Pulse Rate 73 76 Respiratory Rate 16 16 Respiratory Pattern Normal Blood Pressure 119/67 107/56 L Blood Pressure [BP] Blood Pressure Mean 84 73 Blood Pressure Mean [BP] BP Systolic BP Diastolic Blood Pressure Source Monitor Monitor Blood Pressure Source [BP] Blood Pressure Position Semi-Fowlers Semi-Fowlers Blood Pressure Position [BP] Blood Pressure Location Right Arm Right Arm Blood Pressure Location [BP] Pulse Ox 100 99 Oxygen Delivery Method Room Air Room Air 12/23/22 01:00 12/23/22 01:15 12/23/22 01:30 Temperature 98.1 F Temperature Source Temporal Pulse Rate 81 72 77 Respiratory Rate 18 18 18 Respiratory Pattern Blood Pressure 107/56 L 120/57 L 107/66 Blood Pressure [BP] Blood Pressure Mean 73 78 79 Blood Pressure Mean [BP] BP Systolic BP Diastolic Blood Pressure Source Monitor Monitor Monitor Blood Pressure Source [BP] Blood Pressure Position Semi-Fowlers Semi-Fowlers Semi-Fowlers Blood Pressure Position [BP] Blood Pressure Location Right Arm Right Arm Right Arm Blood Pressure Location [BP] Pulse Ox 99 99 99 Oxygen Delivery Method Room Air Room Air Room Air 12/23/22 01:45 12/23/22 02:00 12/23/22 02:15 Temperature 97.9 F Temperature Source Temporal Pulse Rate 76 71 74 Respiratory Rate 12 18 18 Respiratory Pattern Blood Pressure 125/71 H 128/74 H 127/71 H Blood Pressure [BP] Blood Pressure Mean 89 92 89 Blood Pressure Mean [BP] BP Systolic BP Diastolic Blood Pressure Source Monitor Monitor Monitor Blood Pressure Source [BP] Blood Pressure Position Supine Semi-Fowlers Semi-Fowlers Blood Pressure Position [BP] Blood Pressure Location Right Arm Right Arm Right Arm Blood Pressure Location [BP] Pulse Ox 99 99 99 Oxygen Delivery Method Room Air Room Air Room Air 12/23/22 02:30 12/23/22 02:45 12/23/22 03:00 Temperature 97.9 F 98.1 F Temperature Source Temporal Temporal Pulse Rate 74 78 70 Respiratory Rate 18 18 18 Respiratory Pattern Blood Pressure 133/73 H 113/59 L 110/67 Blood Pressure [BP] Blood Pressure Mean 93 77 81 Blood Pressure Mean [BP] BP Systolic BP Diastolic Blood Pressure Source Monitor Monitor Monitor Blood Pressure Source [BP] Blood Pressure Position Semi-Fowlers Semi-Fowlers Semi-Fowlers Blood Pressure Position [BP] Blood Pressure Location Right Arm Right Arm Right Arm Blood Pressure Location [BP] Pulse Ox 99 99 99 Oxygen Delivery Method Room Air Room Air Room Air 12/23/22 04:00 12/23/22 05:05 12/23/22 06:41 Temperature 97.5 F L 98.0 F 97.6 F L Temperature Source Temporal Temporal Temporal Pulse Rate 77 78 73 Respiratory Rate 18 16 18 Respiratory Pattern Blood Pressure Blood Pressure [BP] 112/64 107/60 111/69 Blood Pressure Mean Blood Pressure Mean [BP] 80 75 83 BP Systolic BP Diastolic Blood Pressure Source Blood Pressure Source [BP] Monitor Monitor Monitor Blood Pressure Position Blood Pressure Position [BP] Semi-Fowlers Semi-Fowlers Semi-Fowlers Blood Pressure Location Blood Pressure Location [BP] Right Arm Right Arm Right Arm Pulse Ox 100 98 100 Oxygen Delivery Method Room Air Room Air Room Air Weight Weight: 101.661 kg Body Mass Index (BMI) 37.3 General Weight: 101.661 kg
--- NOTE | 2022-12-23 11:08 | CASEMGMT ---
Social Work Assessment Labor and Delivery Unit Patient Address:[facility] [place] [address] Phone number: [phone] Date of Referral: 12/22/22 Time of Referral:? 075 Referred By: Dr. Tushar Meléndez Date of Intervention: ??12/23/22 Time of Intervention:? 1000 Reason for Referral:? THC use, family hx of drug use, resources and mental health Sw completed chart review, acknowledges social work consult received. Sw presented to bedside, introduced self to MOB who was sitting in chair holding baby. Sw explained reason for sw involvement. MOB receptive to meeting with sw. History obtained from: medical records and mother of baby (DERIK- Radha)?? Household composition: Currently residing in the home is MOB and father of baby (FOB- Juan Buckner) Patient's parent/guardian status:?DERIK is a 28 year old single female, who reports she and FOB have been together for 3 years. FOB is 24 year old single male. During conversation with DERIK she denied any form of domestic abuse including intimate partner violence. Medical History: DERIK is 1, para 0 now 1 following delivery of baby boy, Albina Arciniega. DERIK received routine care throughout with [facility]. MOB delivered baby via . Baby was born on morning of 12/23/22. Baby weighs 6lb 13oz, and his apgars are 9 and 9. No concerning medical issues at this time. DERIK states that she is breast feeding baby and that is going well. ? Educational Status: MOB states that she graduated from high school and FOB has obtained his GED. MOB states that she did not require any additional assistance to help her learn. NO difficulties reading, writing or learning. ? Financial Status: Both parents are gainfully employed outside of the home. DALIA works at a [employer] in [place]. 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 Infant Supplies:??MOB states that she has been able to obtain all necessary baby items for baby including a safe sleep space, car seat, clothes, diapers and wipes, etc. MOB is breast feeding and states thats he does have a pump. Childcare/Caregiver(s):? MOB states that although she and FOB will be the primary caregivers to patient, if they never need a informatics pharmacist she will be able to ask her mother to help provide care. Transportation:?? DERIK denies transportation barriers at this time. Programs/Agencies Involved: DERIK is receiving services through [employer] [facility] [employer] [facility]. She has Medicaid and Food stamps. DERIK also has WIC. Sw provided information to MOB regarding [facility] and encouraged linkage at time of discharge. ??? Children Services/Legal Issues:??No historical information. ? Behavioral Health Issues: ??Mental Health History:??MOB has been diagnosed with anxiety and depression. MOB states that she is not prescribed any medications to assist with these diagnoses at this time. MOB completed [place] Depression Screen, her score was a 7. Sw educated MOB on importance of getting connected to mental health supports during this period should her symptoms of anxiety or depression increase. MOB expressed understanding. Sw provided literature and education on signs and symptoms of baby blues and depression. DERIK denies ever having thoughts of hurting herself during her lifetime. ? Substance Use History:?MOB reports to using THC several times a month during to help with nausea. Sw informed MOB that sw is mandated manager database and due to [place] Act has to make a referral to [facility] due to MOB substance use during . MOB expressed understanding. ? Family History:?DERIK states that she is not sure if any of her immediate family members have been diagnosed with any mental health diagnoses. But MOB states that her mother does have a substance use history positive for alcohol, meth, and cocaine. MOB states that her mom has been clean for 5 years now and does not use drugs. ? Drug Screens: ?DERIK was positive at delivery on 12/22/22 for THC. Family/Social Stressors:?DERIK does not disclose any stressors or issues at this time. MOB is happy that baby is born. MOB was observed holding baby in loving way. Support Systems: MOB states that her mom is a big support person for her and FOB. Depression/Shaken Baby/Safe Sleeping: Sw reviewed ABCs of safe sleep and shaken baby prevention. Sw reviewed mood and anxiety disorders, risk factors present and the importance of seeking out help and support should symptoms increase. MOB expressed understanding with each of these issues. Sw also encouraged MOB to have a conversation with FOB on how he can be supportive and help MOB during this period. Referrals: Sw made referral to [facility] due to MOB positive urine screen at delivery for THC. Sw spoke to hotline screener, Tania Ascencio. ASSESSMENT:? MOB at bedside interacting with baby and providing appropriate hands on care. MOB expressed understanding of importance of monitoring her mental health for symptoms of baby blues and depression due to mental health history positive for anxiety and depression. MOB understanding of necessary referral be made to Children Services due to THC use during . MOB reports to have everything she needs for baby. MOB interactive during assessment but somewhat flat affect. MOB would benefit from ongoing support and education provided throughout hospitalization. Safe Plan of Care for infant related to substance use: MOB expresses no need/ desire to use THC now that baby has been born. Explains that use was only to assist with naursea. MOB states she does have her medical marijuana card, sw did not look to confirm this, but did follow through with referral to Children Services. ??? PLAN:? Benoit will continue to be available to provide support to MOB throughout her current hospitalization. ?No other services requested or indicated. Cornel Hussein, CHANNEL OPENER OUTSOLES, ADMISSIONS CLINICIAN
[2022-12-23] MEDS: Senna/Docusate Sodium 1 Tablet PO (11:19)
[2022-12-23] MEDS: SimETHICONE 80 MG Chewable Tablet PO (11:24)
[2022-12-23] MEDS: Enoxaparin 40 MG/0.4 ML Syringe SC (13:18)
[2022-12-24] MEDS: Acetaminophen 500 MG Tablet 1000 MG PO ×2 (00:17→05:59)
[2022-12-24 02:26] VITALS: BP 113/58; PULSE 70; RESP 16; TEMP 36.9; O2SAT 96
[2022-12-24] MEDS: Ibuprofen 600 MG Tablet PO ×2 (02:53→09:22)
[2022-12-24 06:35] LABS: Hematocrit 29.1 % (37-47); Mean Corp Hgb Conc 30.9 g/dL (32-36); Mean Corpuscular Hgb 25.6 pg (27.0-32.0); Mean Corpuscular Volume 82.9 fL (81-99); Mean Platelet Vol. 9.4 fl (6.2-12.0); Platelet Count 331 K/mm3 (150-450); RBC Distribution Width CV 14.9 % (11.6-14.6); RBC Distribution Width SD 44.7 fl (35.1-43.9); Red Blood Count 3.51 M/mm3 (4.2-5.4); White Blood Count 11.7 K/mm3 (4.4-11.0)
--- NOTE | 2022-12-24 08:16 | PCM.DC.BLA ---
Discharge Summary Date of Admission: 12/22/22 Date of Discharge: 12/24/22 Summary: Patient arrived on 12/22/2022 for induction of labor at term. Subsequently with nonreassuring heart tones and primary section was performed on 12/23/2022. Routine postoperative recovery. Discharged home on 12/24/2022 Meaningful Use Info Meaningful Use Diagnoses (Choose all that apply): None applicable Discharge Plan Admission Admit Date/Time: 12/22/22 07:05 Primary Reason for Your Visit: Induction of labor Attending Provider: Tushar Meléndez Primary Care Provider: Carlotta Gray Primary Instructions Additional Instructions / Restrictions: Regular diet. Okay to shower. No tub baths for 2 weeks. No intercourse for 6 to 8 weeks. No lifting over 25 pounds for 2 to 3 weeks. Call if fevers, chills, chest pain, shortness of breath. Follow-up 2 weeks postoperatively Discharge Orders/Prescriptions Prescriptions: New oxycodone 5 mg tablet 5 mg PO Q6H PRN (Reason: pain (scale score 7-10)) 4 Days Qty: 16 0RF Continued 1 tab PO DAILY acetaminophen [Tylenol] 325 mg Tablet 650 mg PO Q6H PRN (Reason: Pain) ondansetron HCl 4 mg Tablet 4 mg PO Q8H PRN (Reason: Nausea) Discontinued sulfamethoxazole-trimethoprim 1 TABLET tablet 1 tab PO BID Qty: 14 0RF cephalexin 500 MG capsule 500 mg PO Q6 Qty: 40 0RF oxycodone 5 mg tablet 5 mg PO Q6H PRN (Reason: pain (scale score 7-10)) 2 Days Qty: 8 0RF Referrals / Follow Up: Care PhysicianCarlotta Primary [Primary Care Provider] - Disposition Disposition (needs filled in before D/C Order can be placed): Home, Self Care
--- NOTE | 2022-12-24 08:17 | PCM.PN.OB ---
Subjective Subjective No overnight complaints. Pain well controlled Objective Data Objective Data Vital Signs: Vital Signs Temp Pulse Resp BP Pulse Ox O2 Del Method 98.4 F 70 16 113/58 L 96 Room Air 12/24/22 02:26 12/24/22 02:26 12/24/22 02:26 12/24/22 02:26 12/24/22 02:26 12/24/22 02:26 Oxygen Delivery Method Room Air Weight: 224 lb 2 oz Body Mass Index (BMI) 37.3 Intake & Output: Intake and Output for Last 24 Hours 12/22/22 12/23/22 12/24/22 23:59 23:59 23:59 Intake Total 3216.02 / 3216.02 2105 / 2105 Output Total 1450 / 1450 2650 / 2650 Balance 1766.02 / 1766.02 -545 / -545 Lab / Micro Data 12/24/22 06:25 Labs: Laboratory Results - last 24 hr 12/24/22 06:25: WBC 11.7 H, RBC 3.51 L, Hgb 9.0 L, Hct 29.1 L, MCV 82.9, MCH 25.6 L, MCHC 30.9 L D, RDW Std Deviation 44.7 H, RDW Coeff of Lindsay 14.9 H, Plt Count 331, MPV 9.4 Physical Exam Const alert, oriented x3, no apparent distress, average body habitus, healthy appearing and well nourished HEENT normocephalic and moist oral mucous membranes Eyes PERRL Neck full ROM Resp normal respiratory effort, no retractions and no use of accessory muscles GI GI Narrative: Soft, nontender, bandage clean dry and intact Extremity normal to inspection and full ROM Neuro moves all extremities and no focal motor deficits Psych mental status grossly normal, affect normal, speech normal and activity/motor behavior normal Assessment & Plan (1) Delivery by section: PLAN: Postoperative day 1 status post primary section for nonreassuring heart tones. Breast-feeding. Pain well controlled. Okay to discharge home today if okay with container repairer
[2022-12-24 09:13] VITALS: BP 117/69; PULSE 73; RESP 16; TEMP 36.4; O2SAT 99
--- NOTE | 2022-12-24 09:21 | CASEMGMT ---
Social Work Labor and Delivery Unit ? Summary:?Benoit following patient and monitoring chart. Benoit contacted assigned case mgr at [facility], Ava Merchant. Ms. Merchant informed sw that she met with parents yesterday at bedside and did mouth swab to screen for substances. Ms. Merchant states that she will be making a referral for [facility] and will be following up with parents at home sometime next week. Sw informed Ms. Merchant that baby toxicology screen was positive for THC. Benoit informed by bedside RN, Chrystal, that there are concerns with safe sleep. Chrystal reported that father of baby (FOB- Juan) was holding baby while sleeping on the couch. Baby was on the edge side of couch. Nurse and mother of baby (MOB- Radha) attempted several times to wake dad up. Dad eventually startled to wake and threw his arms in the air, alarming MOB and nurse who then screamed. Chrystal states that she went over to get baby and put him back in safe sleep space, but dad refused. Chrystal reports that dad then sat on the edge of the couch holding baby and looking at him. Chrystal reports that FOB did not have any remorse for incident and did not express concern for incident. Benoit presented to bedside and introduced self to FOB. FOB sitting in chair playing video games. Benoit explained that sw following up to reiterate importance of safe sleep. FOB states he knows all about safe sleep, reporting baby needs to have nothing in the crib with him, only swaddled. Sw asked what else FOB knows about safe sleep, to which FOB states that was all. Benoit explained that safe sleep also includes not sleeping in bed or on couch with baby. Sw educated parents to always put baby back in safe sleep space prior to falling asleep themselves. FOB returned to playing video games. MOB asked question about using a baby sleep device such as as Docatot. Sw stated if it is designed for baby to sleep and not just play in that it should be ok as long as it cannot fall to a hard surface. MOB expressed understanding. Sw also reiterated importance of not smoking (nicotene or THC) in the home. Sw also encouraged MOB to change her shirt/ clothes after smoking so baby is not breathing in second hand smoke. MOB expressed understanding and reports that she never smokes inside. Sw encouraged MOB to ask for social work should any other needs or questions arise prior to discharge. . ? Assessment:? Children services has opened up a case of investigation due to MOB using THC during . MOB asked appropriate questions to social services technician. FOB inattentive and playing video games while social work meeting with parents at bedside. MOB and baby to be discharged today. ? Intervention:?Sw provided education and reiterated importance of safe sleep habits and told parents not to smoke around the baby. ? Plan:??MOB and baby to be disharged today. ? No other services requested or indicated. Cornel Hussein, JEWEL BEARING DRILLER, WHARF LABOURER
[2022-12-24] MEDS: Senna/Docusate Sodium 1 Tablet PO (09:23)
[2022-12-24] MEDS: Enoxaparin 40 MG/0.4 ML Syringe SC (09:23)
== END 2022-12-24 12:10 | disposition home or self-care (01) | DRG 540 ==
PROVIDERS: Admitting Provider Obstetrics & Gynecology; Referring Provider Obstetrics & Gynecology; Visit Provider Obstetrics & Gynecology
DX: O48.0 Post-term pregnancy (principal); E66.9 Obesity, unspecified; O99.214 Obesity complicating childbirth; O76 Abnormality in fetal heart rate and rhythm complicating labor and delivery; Z3A.40 40 weeks gestation of pregnancy; Z37.0 Single live birth
CPT/HCPCS: 59025; 59050; 80307; 85025; 85027; 86780; 86850; 86900; 86901; 99221; J7120; A4216; G0378; J2405

== ENCOUNTER 2023-09-01 02:46 | Emergency (ER) | payer MEDICAID, SELFPAY ==
[2023-09-01 02:46] VITALS: BP 128/113; PULSE 79; RESP 18; TEMP 36.7; O2SAT 100
--- NOTE | 2023-09-01 03:00 | CT_ITS ---
INDICATION: Pain EXAMINATION: CT Abdomen And Pelvis W/O Contrast Injection TECHNIQUE: Helically acquired images were obtained of the abdomen and pelvis with sagittal and coronal reconstructed images. Individualized dose optimization techniques were used for this CT. IV contrast dosage and agent: None. Oral contrast: None. COMPARISON: 09/16/2022 CT. FINDINGS: VESSELS: No abdominal aortic aneurysm. LIVER: No intrahepatic or extrahepatic biliary duct dilation. GALLBLADDER: Status post cholecystectomy. PANCREAS: No evidence of a mass. No evidence of pancreatitis. SPLEEN: Normal. ADRENAL GLANDS: Normal. KIDNEYS AND URETERS: No urinary tract stone. No hydronephrosis or hydroureter. No significant asymmetric perinephric stranding. URINARY BLADDER: Unremarkable. BOWEL: No evidence of diverticulosis or diverticulitis. Appendix appears normal. No evidence of bowel obstruction. REPRODUCTIVE ORGANS: IUD within the uterus. PERITONEUM: No intraabdominal free fluid or free air. LYMPH NODES: No pathologically enlarged mesenteric or retroperitoneal lymph nodes. ABDOMINAL WALL: No abdominal or pelvic wall hernia. BONES: No acute abnormality. LOWER CHEST: Visualized lung bases are unremarkable. CT/Abdomen/Pelvis without Cont IMPRESSION: No acute abnormality. Electronically Signed: Josias Mota DO at 4:59 EDT ,
--- NOTE | 2023-09-01 03:08 | ED.VIS.GI ---
HPI HPI - GI History of Present Illness Chief Complaint: Abd Pain Informant: patient Narrative Narrative: Patient is a 27-year-old female with history of nephrolithiasis and endometriosis presenting with sudden onset of suprapubic abdominal pain. Patient states they would start by the gas station she had urinated as they are on their way to the gym. When she got back in her van she suddenly had severe cramp that she describes as 10 out of 10 pain in her suprapubic region. She notes it started to subside but is still quite bad (8 out of 10). She tolerated the pain like this before. She had some associated nausea associate with her pain. Q immediately to the emergency room for further evaluation. Does have a history of an IUD and is worried that maybe it is malpositioned causing her pain. Denies any vaginal bleeding or abnormal vaginal discharge. States the pain radiates down both her legs. Denies any urinary symptoms. Was in her normal state of health before the pain started. No other complaints or concerns at this time. Surgical history includes and cholecystectomy. PFSH PFSH Medical History Anxiety Depression Headache Home Medications NK 09/01/23 [History Last Taken Unknown] Allergy/AdvReac Type Severity Reaction Status Date / Time nickel Allergy Itching Verified 12/22/22 07:41 peppermint Allergy Rash Verified 12/22/22 07:41 oxytocin [From Pitocin] AdvReac PT UNSURE Verified 09/01/23 02:47 OF REACTION Surgical History History of surgery History of surgery Social History Smoking Status: Former smoker ROS ROS ED Constitutional Constitutional ED: Denies chills or fever(s) Cardiovascular Cardiovascular: Denies chest pain Respiratory/Chest Respiratory/Chest: Denies cough Gastrointestinal Gastrointestinal: Reports abdominal pain and nausea; Denies constipation, diarrhea or vomiting Genitourinary Genitourinary ED: Denies dysuria, hematuria or urinary frequency Musculoskeletal Musculoskeletal: Denies arthralgias, back pain or myalgias Integumentary Denies rash Neurologic Neurologic: Denies headache(s) Hematologic/Lymphatic Hematologic/Lymphatic: Denies easy bleeding or easy bruising EXAM Physical Exam Const Vital Signs: 09/01/23 02:46 09/01/23 03:21 09/01/23 05:00 Temperature 98.1 F Temperature Source Oral Pulse Rate 79 69 58 L Respiratory Rate 18 17 18 Blood Pressure 128/113 H 118/69 133/72 H Blood Pressure Mean 118 85 92 Pulse Ox 100 98 98 Oxygen Delivery Method Room Air Room Air Room Air Positive well nourished and well developed General Appearance ED: well developed; Negative for pallor HEENT Reports moist mucous membranes Eyes PERRL Neck supple Resp normal respiratory effort and clear to auscultation bilaterally Cardio regular rate and regular rhythm GI non-distended Auscultation: normoactive bowel sounds Palpation: soft and tender suprapubic Back/Spine no CVA tenderness Neuro Sensorium / Orientation: alert Motor Exam: Negative for general weakness Psych mental status grossly normal and thought process normal Skin General Skin Exam: Negative for jaundice or pallor Rashes: no rashes MDM MDM MDM Narrative Medical decision making narrative: Patient evaluated for sudden onset of cramping suprapubic abdominal pain. Differential includes renal colic, ovarian torsion (less likely since it does not localize), urinary tract infection and perforated/migrated IUD. Patient is given IV Zofran and Toradol for symptom control we will obtain a CT as it is after hours and we do not have ultrasound readily available. Will check basic labs as well including lactate as her complaint of pain is slightly out of proportion to her exam. Patient is improvement of symptoms with Zofran and Toradol. She has a mild leukocytosis of 12.7 which actually appears to be around her baseline. No other signs of a left shift. CMP is normal however her lactate is elevated at 3.4. Urinalysis is not consistent with infection and largely normal. Serum is negative. Patient is ordered a liter of IV fluids. Will recheck lactate. CT of the abdomen and pelvis does not show any acute intra-abdominal pathology. Given resolution of her symptoms, will recheck lactate and if this is improving likely discharge home with outpatient follow-up with OB TECH for formal pelvic ultrasound however I do not think she is having acute ovarian torsion, acute renal colic or other cause of her pain. The exact cause of this episode of cramping pain is not clear however. Repeat lactate normal. Patient remains asymptomatic. Vital signs stable. Discharged home. Given referral to OB TECH for outpatient follow-up. Lab Data Attestation: I reviewed the patient's lab results. Labs: Laboratory Results - last 24 hr 09/01/23 09/01/23 09/01/23 03:15 04:05 06:03 WBC 12.7 H RBC 4.74 Hgb 12.5 Hct 39.4 MCV 83.1 MCH 26.4 L MCHC 31.7 L RDW Std Deviation 42.1 RDW Coeff of Lindsay 13.8 Plt Count 388 MPV 9.2 Immature Gran % (Auto) 0.400 Neut % (Auto) 64.3 Lymph % (Auto) 23.6 [place] % (Auto) 7.3 Eos % (Auto) 3.6 Baso % (Auto) 0.8 Absolute Neuts (auto) 8.2 H Absolute Lymphs (auto) 2.99 Nucleated RBC % 0 Sodium 139 Potassium 3.9 Chloride 104 Carbon Dioxide 26.0 Anion Gap 9 BUN 13 Creatinine 0.72 Est GFR (MDRD) Af Amer 123 Est GFR (MDRD) Non-Af 102 BUN/Creatinine Ratio 18.0 Glucose 99 Lactic Acid 3.4 H* 0.8 Calcium 9.4 Total Bilirubin 0.40 AST 5 L ALT 16 Alkaline Phosphatase 93 Total Protein 7.1 Albumin 3.7 Globulin 3.4 Albumin/Globulin Ratio 1.1 Serum , Qual NEGATIVE Urine Color Yellow Urine Clarity Clear Urine pH 6.5 Ur Specific [place] 1.015 Urine Protein Negative Urine Glucose (UA) Normal Urine Ketones Negative Urine Occult Blood Negative Urine Nitrite Negative Urine Bilirubin Negative Urine Urobilinogen Normal Ur Leukocyte Esterase Negative Urine RBC 0 SEEN Urine WBC 0 SEEN Ur Squamous Epith Cells 0-5 SEEN Urine Bacteria 0 SEEN Urine Mucus 0 SEEN Urine Test Cancelled Radiography Diagnostic Testing: Clinical Impression(s) from Imaging Studies Abdomen/Pelvis CT 09/01/23 03:00 IMPRESSION: No acute abnormality. Electronically Signed: Josias Mota DO at 4:59 EDT , Discharge Plan Triage Chief Complaint: Abd Pain ED Provider: Tammi Chow Dx/Rx/DC Orders Clinical Impression: Lower abdominal pain Instructions: ED Abdominal Pain Unkn Cause Fem Prescriptions: No Action NK Primary Care Provider: Care Physician,No Primary Referrals: Marii Rodriguez DO [Med Staff - Active Staff] - As soon as possible Care Physician,No Primary [Primary Care Provider] - Activity Restrictions/Additional Instructions: The exact cause of your symptoms is not clear. Your workup was largely negative today. Your lactate was elevated which could be due to dehydration. I do recommend you follow-up outpatient with OB TECH and have an outpatient ultrasound to confirm placement of your IUD however on CT there did not appear to be an obvious malposition/migration of it. Please alternate ibuprofen and Tylenol for pain as needed and make sure you are drinking plenty of fluids. Disposition Disposition: Home, Self Care
[2023-09-01] MEDS: Ondansetron 4 MG/2 ML Vial IV (03:18)
[2023-09-01] MEDS: Ketorolac 15 MG/ML Vial IV (03:18)
[2023-09-01 03:21] VITALS: BP 118/69; PULSE 69; RESP 17; O2SAT 98
[2023-09-01 03:25] LABS: Absolute Lymphocyte Count 2.99 X10^3/uL (0.83-4.51); Absolute Neutrophil Count 8.2 X10^3/uL (2.0-7.7); Basophil% 0.8 % (0-1); Eosinophil# 0.45 X10^3/uL; Eosinophils% 3.6 % (0-5); Hematocrit 39.4 % (37-47); Hemoglobin 12.5 g/dL (12.0-15.0); Lymphocyte # 2.99 X10^3/ul (0.83-4.51); Lymphocyte % 23.6 % (19-41); Mean Corp Hgb Conc 31.7 g/dL (32-36); Mean Corpuscular Hgb 26.4 pg (27.0-32.0); Mean Corpuscular Volume 83.1 fL (81-99); Mean Platelet Vol. 9.2 fl (6.2-12.0); Monocyte# 0.93 X10^3/uL; Monocyte% 7.3 % (0-10); NRBC Flagged by Analyzer 0 % (0-5); Neutrophil # 8.15 X10^3/uL (2.7-7.7); Neutrophil % 64.3 % (47-70); Platelet Count 388 K/mm3 (150-450); RBC Distribution Width CV 13.8 % (11.6-14.6); RBC Distribution Width SD 42.1 fl (35.1-43.9); Red Blood Count 4.74 M/mm3 (4.2-5.4); White Blood Count 12.7 K/mm3 (4.4-11.0)
[2023-09-01 03:43] LABS: Internal QC Validated? YES +Cl - CLEAR BKGD; Pregnancy, Serum, hCG Quali. NEGATIVE Negative
[2023-09-01 03:47] LABS: ALB/GLOB Ratio 1.1 RATIO (0.9-2.4); AST(SGOT) 5 U/L (15-37); Alanine Aminotransfer ALT/SGPT 16 U/L (13-56); Albumin, Serum 3.7 g/dL (3.2-5.0); Alkaline Phosphatase 93 U/L (45-117); Anion Gap 9 (5-15); BUN 13 mg/dL (7-18); Calcium,Total 9.4 mg/dL (8.5-10.1); Chloride 104 mmol/L (98-107); Creatinine, Serum 0.72 mg/dL (0.55-1.02); EST Glomerular Filtration Rate 102 mL/min (>60); Est Glom Filt Rate - Afr Amer 123 mL/min (>60); Globulin 3.4 g/dL (2.2-4.2); Glucose 99 mg/dL (74-106); Potassium 3.9 mmol/L (3.5-5.1); Protein, Total 7.1 g/dL (6.4-8.2); Sodium Level 139 mmol/L (136-145)
[2023-09-01 03:54] LABS: Lactic Acid 3.4 mmol/L (0.4-1.9)
[2023-09-01] MEDS: 0.9% Normal Saline (1000mL) 1,000 ML 999 ML IV (04:04)
[2023-09-01 04:14] LABS: Bacteria 0 SEEN /hpf (None Seen); Mucous, Urine 0 SEEN /hpf (<or=2+); Red Blood Cells-Urine 0 SEEN /hpf (0-5); White Blood Cells 0 SEEN /hpf (0-5)
[2023-09-01 04:18] LABS: Color, Urine Yellow (Yellow); Glucose, Dipstick Normal (Normal); Ketone-Dipstick Negative (Negative); Leukocyte Esterase-Dipstick Negative /ul (Negative); Nitrite-Dipstick Negative (Negative); Occult Blood-Urine Negative /ul (Negative); Protein-Dipstick Negative (Negative); Specific Gravity, Urine 1.015 (1.002-1.030); Urine Bilirubin Dipstick Negative (Negative); Urine Clarity Clear (Clear); Urine Urobilinogen Normal (Normal); Urine pH 6.5 (5.0 - 8.0)
[2023-09-01 04:43] LABS: Squamous Epithelial Cells - UA 0-5 SEEN /hpf (5-10)
[2023-09-01 04:56] LABS: Reflex Lactate? Y
[2023-09-01 05:00] VITALS: BP 133/72; PULSE 58; RESP 18; O2SAT 98
[2023-09-01 06:39] LABS: Lactic Acid 0.8 mmol/L (0.4-1.9)
[2023-09-01 06:45] VITALS: BP 117/65; PULSE 71; RESP 18; TEMP 36.6; O2SAT 98
== END 2023-09-01 06:55 | disposition home or self-care (01) ==
PROVIDERS: Emergency Provider Emergency Medicine; Visit Provider Emergency Medicine
DX: R10.30 Lower abdominal pain, unspecified (principal); R74.8 Abnormal levels of other serum enzymes; Z87.891 Personal history of nicotine dependence
CPT/HCPCS: 74176; 80053; 81001; 83605; 84703; 85025; 96361; 96374; 96375; 99283; A4216; J2405